=== PATIENT | female | born 1935 | race Caucasian/White ===

== ENCOUNTER 2020-12-11 17:44 | Inpatient (IN) | payer MEDICARE, OTHER ==
[2020-12-11] MEDS ORDERED: SODIUM CHLORIDE 0.9% 1,000 ML IV STA (17:53)
--- NOTE | 2020-12-11 17:58 | ED ---
General Adult HPI - General Chief complaint: Weakness Stated complaint: Weakness Time Seen by Provider: 12/11/20 17:44 Source: patient, EMS, RN notes reviewed, old records reviewed Mode of arrival: EMS Limitations: no limitations - History of Present Illness Initial comments: This is an 85-year-old female history of COPD who is oxygen dependent history of dementia who is brought in by EMS because of weakness lethargy worsening mental status. She has been exposed to someone with Covid 19 in the facility where she resides. He did have a fever. No nausea vomiting no diarrhea. - Related Data Home Medications Medication Instructions Recorded Confirmed Acetaminophen Tab [Tylenol] 500 mg PO BID PRN 01/31/15 01/31/15 Cholecalciferol [Vitamin D3 (25 2,000 unit PO DAILY 01/31/15 01/31/15 Mcg = 1000 Iu)] Cyanocobalamin [Vitamin B-12] 1,000 mcg PO DAILY 01/31/15 01/31/15 Famotidine [Pepcid] 20 mg PO DAILY 01/31/15 01/31/15 Lidocaine 5% Patch [Lidoderm 5% 1 patch TOPICAL DAILY 01/31/15 01/31/15 Patch] Loratadine [Claritin] 10 mg PO DAILY 01/31/15 01/31/15 Lovastatin [Mevacor] 20 mg PO HS 01/31/15 01/31/15 Melatonin 5 mg PO HS 01/31/15 01/31/15 Memantine [Namenda] 10 mg PO BID 01/31/15 01/31/15 Potassium Chloride [K-Tab ER] 10 meq PO DAILY 01/31/15 01/31/15 QUEtiapine [SEROquel] 100 mg PO HS 01/31/15 01/31/15 Thiamine [Vitamin B-1] 100 mg PO DAILY 01/31/15 01/31/15 Warfarin [Coumadin] 2.5 mg PO DAILY 01/31/15 01/31/15 clonazePAM [KlonoPIN] 0.5 mg PO TID PRN 01/31/15 01/31/15 guaiFENesin-DM 100-10MG/5ML 2.5 ml PO DAILY PRN 01/31/15 01/31/15 [Robitussin DM] traZODone HCL [Desyrel] 100 mg PO HS 01/31/15 01/31/15 Previous Rx's Medication Instructions Recorded Azithromycin [Zithromax] 500 mg PO HS #3 tab 02/04/15 Budesonide-Formot 160-4.5 Mcg 2 puff INHALATION RT-BID #1 puff 02/04/15 [Symbicort 160-4.5 Mcg Inhaler] Ipratropium-Albuterol Nebulize 3 ml INHALATION RT-TID #90 02/04/15 [Duoneb 0.5 mg-3 mg/3 ml Soln] ampul.neb Allergies Allergy/AdvReac Type Severity Reaction Status Date / Time Penicillins Allergy Unknown Verified 01/31/15 16:58 Review of Systems ROS Statement: Those systems with pertinent positive or pertinent negative responses have been documented in the HPI. ROS Other: All systems not noted in ROS Statement are negative. Limitations: ROS unobtainable due to patients medical condition Past Medical History Past Medical History: Dementia, Hyperlipidemia, Pulmonary Embolus (PE), Renal Disease History of Any Multi-Drug Resistant Organisms: ESBL Date of last positivie culture/infection: 09/05/18 ESBL E.coli MDRO Source:: URINE Past Surgical History: Appendectomy, Back Surgery, Joint Replacement Additional Past Surgical History / Comment(s): Both hips replaced Past Anesthesia/Blood Transfusion Reactions: No Reported Reaction Past Psychological History: Anxiety Smoking Status: Never smoker Past Alcohol Use History: Occasional Past Drug Use History: None Reported - Past Family History Brother(s) Family Medical History: Cancer Additional Family Medical History / Comment(s): 3 brothers and 2 sisters had cancer not sure where General Exam - General Exam Comments Initial Comments: This is a well-developed sec appearing female who is awake alert but pleasantly confused. Limitations: no limitations General appearance: alert, in no apparent distress Head exam: Present: atraumatic, normocephalic, normal inspection Eye exam: Present: normal appearance, PERRL, EOMI. Absent: scleral icterus, conjunctival injection, periorbital swelling ENT exam: Present: mucous membranes dry Neck exam: Present: normal inspection. Absent: tenderness, meningismus, lymphadenopathy Respiratory exam: Present: decreased breath sounds. Absent: respiratory distres s, wheezes, rales, rhonchi, stridor Cardiovascular Exam: Present: regular rate, normal rhythm, normal heart sounds. Absent: systolic murmur, diastolic murmur, rubs, gallop, clicks GI/Abdominal exam: Present: soft, normal bowel sounds. Absent: distended, tenderness, guarding, rebound, rigid Extremities exam: Present: normal inspection, full ROM, normal capillary refill. Absent: tenderness, pedal edema, joint swelling, calf tenderness Back exam: Present: normal inspection Neurological exam: Present: alert, altered, CN II-XII intact Psychiatric exam: Present: normal affect, normal mood Skin exam: Present: warm, dry, intact, normal color. Absent: rash Course Vital Signs 12/11/20 12/11/20 12/11/20 17:47 18:55 19:31 Temperature 99.9 F H 99.6 F Pulse Rate 102 H 97 89 Respiratory 20 16 24 Rate Blood Pressure 120/109 113/94 158/77 O2 Sat by Pulse 93 L 95 94 L Oximetry Medical Decision Making - Medical Decision Making I did discuss findings with Dr. Smith patient will be admitted place [facility]. Patient does have dehydration and failure to thrive - Lab Data Result diagrams: 12/11/20 17:52 12/11/20 18:40 Lab Results 12/11/20 12/11/20 12/11/20 Range/Units 17:52 17:52 18:01 WBC 11.4 H (3.8-10.6) k/uL RBC 4.96 (3.80-5.40) m/uL Hgb 14.0 (11.4-16.0) gm/dL Hct 44.5 (34.0-46.0) % MCV 89.8 (80.0-100.0) fL MCH 28.3 (25.0-35.0) pg MCHC 31.5 (31.0-37.0) g/dL RDW 13.1 (11.5-15.5) % Plt Count 262 (150-450) k/uL MPV 7.8 Neutrophils % 73 % Lymphocytes % 19 % Monocytes % 5 % Eosinophils % 1 % Basophils % 1 % Neutrophils # 8.3 H (1.3-7.7) k/uL Lymphocytes # 2.2 (1.0-4.8) k/uL Monocytes # 0.6 (0-1.0) k/uL Eosinophils # 0.1 (0-0.7) k/uL Basophils # 0.1 (0-0.2) k/uL PT (9.0-12.0) sec INR (<1.2) Sodium (137-145) mmol/L Potassium (3.5-5.1) mmol/L Chloride (98-107) mmol/L Carbon Dioxide (22-30) mmol/L Anion Gap mmol/L BUN (7-17) mg/dL Creatinine (0.52-1.04) mg/dL Est GFR (CKD-EPI)AfAm (>60 ml/min/1.73 sqM) Est GFR (CKD-EPI)NonAf (>60 ml/min/1.73 sqM) Glucose (74-99) mg/dL Plasma Lactic Acid Jaquan 1.0 (0.7-2.0) mmol/L Calcium (8.4-10.2) mg/dL Magnesium (1.6-2.3) mg/dL Total Bilirubin (0.2-1.3) mg/dL AST (14-36) U/L ALT (4-34) U/L Alkaline Phosphatase (38-126) U/L C-Reactive Protein (<10.0) mg/L Total Protein (6.3-8.2) g/dL Albumin (3.5-5.0) g/dL Urine Color Urine Appearance (Clear) Urine pH (5.0-8.0) Ur Specific [place] (1.001-1.035) Urine Protein (Negative) Urine Glucose (UA) (Negative) Urine Ketones (Negative) Urine Blood (Negative) Urine Nitrite (Negative) Urine Bilirubin (Negative) Urine Urobilinogen (<2.0) mg/dL Ur Leukocyte Esterase (Negative) Urine RBC (0-5) /hpf Urine WBC (0-5) /hpf Urine Bacteria (None) /hpf Urine Mucus (None) /hpf Coronavirus (PCR) (Not Detectd) Influenza Type A RNA Not Detected (Not Detectd) Influenza Type B (PCR) Not Detected (Not Detectd) 12/11/20 12/11/20 12/11/20 Range/Units 18:40 18:40 19:49 WBC (3.8-10.6) k/uL RBC (3.80-5.40) m/uL Hgb (11.4-16.0) gm/dL Hct (34.0-46.0) % MCV (80.0-100.0) fL MCH (25.0-35.0) pg MCHC (31.0-37.0) g/dL RDW (11.5-15.5) % Plt Count (150-450) k/uL MPV Neutrophils % % Lymphocytes % % Monocytes % % Eosinophils % % Basophils % % Neutrophils # (1.3-7.7) k/uL Lymphocytes # (1.0-4.8) k/uL Monocytes # (0-1.0) k/uL Eosinophils # (0-0.7) k/uL Basophils # (0-0.2) k/uL PT 11.3 (9.0-12.0) sec INR 1.1 (<1.2) Sodium 143 (137-145) mmol/L Potassium 4.0 (3.5-5.1) mmol/L Chloride 108 H (98-107) mmol/L Carbon Dioxide 27 (22-30) mmol/L Anion Gap 8 mmol/L BUN 22 H (7-17) mg/dL Creatinine 0.92 (0.52-1.04) mg/dL Est GFR (CKD-EPI)AfAm 65 (>60 ml/min/1.73 sqM) Est GFR (CKD-EPI)NonAf 56 (>60 ml/min/1.73 sqM) Glucose 113 H (74-99) mg/dL Plasma Lactic Acid Jaquan (0.7-2.0) mmol/L Calcium 8.7 (8.4-10.2) mg/dL Magnesium 2.0 (1.6-2.3) mg/dL Total Bilirubin 0.9 (0.2-1.3) mg/dL AST 20 (14-36) U/L ALT 10 (4-34) U/L Alkaline Phosphatase 85 (38-126) U/L C-Reactive Protein 56.9 H (<10.0) mg/L Total Protein 6.7 (6.3-8.2) g/dL Albumin 3.6 (3.5-5.0) g/dL Urine Color Yellow Urine Appearance Clear (Clear) Urine pH 6.5 (5.0-8.0) Ur Specific [place] 1.017 (1.001-1.035) Urine Protein Trace H (Negative) Urine Glucose (UA) Negative (Negative) Urine Ketones Negative (Negative) Urine Blood Trace H (Negative) Urine Nitrite Negative (Negative) Urine Bilirubin Negative (Negative) Urine Urobilinogen 3.0 (<2.0) mg/dL Ur Leukocyte Esterase Moderate H (Negative) Urine RBC 11 H (0-5) /hpf Urine WBC 45 H (0-5) /hpf Urine Bacteria Rare H (None) /hpf Urine Mucus Rare H (None) /hpf Coronavirus (PCR) (Not Detectd) Influenza Type A RNA (Not Detectd) Influenza Type B (PCR) (Not Detectd) 12/11/20 Range/Units 19:49 WBC (3.8-10.6) k/uL RBC (3.80-5.40) m/uL Hgb (11.4-16.0) gm/dL Hct (34.0-46.0) % MCV (80.0-100.0) fL MCH (25.0-35.0) pg MCHC (31.0-37.0) g/dL RDW (11.5-15.5) % Plt Count (150-450) k/uL MPV Neutrophils % % Lymphocytes % % Monocytes % % Eosinophils % % Basophils % % Neutrophils # (1.3-7.7) k/uL Lymphocytes # (1.0-4.8) k/uL Monocytes # (0-1.0) k/uL Eosinophils # (0-0.7) k/uL Basophils # (0-0.2) k/uL PT (9.0-12.0) sec INR (<1.2) Sodium (137-145) mmol/L Potassium (3.5-5.1) mmol/L Chloride (98-107) mmol/L Carbon Dioxide (22-30) mmol/L Anion Gap mmol/L BUN (7-17) mg/dL Creatinine (0.52-1.04) mg/dL Est GFR (CKD-EPI)AfAm (>60 ml/min/1.73 sqM) Est GFR (CKD-EPI)NonAf (>60 ml/min/1.73 sqM) Glucose (74-99) mg/dL Plasma Lactic Acid Jaquan (0.7-2.0) mmol/L Calcium (8.4-10.2) mg/dL Magnesium (1.6-2.3) mg/dL Total Bilirubin (0.2-1.3) mg/dL AST (14-36) U/L ALT (4-34) U/L Alkaline Phosphatase (38-126) U/L C-Reactive Protein (<10.0) mg/L Total Protein (6.3-8.2) g/dL Albumin (3.5-5.0) g/dL Urine Color Urine Appearance (Clear) Urine pH (5.0-8.0) Ur Specific [place] (1.001-1.035) Urine Protein (Negative) Urine Glucose (UA) (Negative) Urine Ketones (Negative) Urine Blood (Negative) Urine Nitrite (Negative) Urine Bilirubin (Negative) Urine Urobilinogen (<2.0) mg/dL Ur Leukocyte Esterase (Negative) Urine RBC (0-5) /hpf Urine WBC (0-5) /hpf Urine Bacteria (None) /hpf Urine Mucus (None) /hpf Coronavirus (PCR) Detected A (Not Detectd) Influenza Type A RNA (Not Detectd) Influenza Type B (PCR) (Not Detectd) - EKG Data -: EKG Interpreted by Me EKG shows normal: sinus rhythm EKG Comments: EKG shows normal sinus rhythm a 93 NC interval 206 QRS 86 QT since QTC 358/[address]-T wave changes - Radiology Data Radiology results: report reviewed (Imaging reviewed no evidence of acute infiltrates at this time), image reviewed Disposition Clinical Impression: COVID-19, Dehydration, Failure to thrive syndrome, adult, Febrile illness, acute, Altered mental status Disposition: ADMITTED IP TO THIS [facility] Condition: Fair Referrals: Eda Degroot MD [Primary Care Provider] - 1-2 days
[2020-12-11 18:57] LABS: Basophils # (A) 0.1 k/uL (0-0.2); Basophils % (A) 1 %; Eosinophils # (A) 0.1 k/uL (0-0.7); Eosinophils % (A) 1 %; HCT 44.5 % (34.0-46.0); Lymphocytes # (A) 2.2 k/uL (1.0-4.8); Lymphocytes % (A) 19 %; MCH 28.3 pg (25.0-35.0); MCHC 31.5 g/dL (31.0-37.0); MCV 89.8 fL (80.0-100.0); Mean Platelet Volume 7.8; Monocytes # (A) 0.6 k/uL (0-1.0); Monocytes % (A) 5 %; Neutrophils # (A) 8.3 k/uL (1.3-7.7); Neutrophils % (A) 73 %; Platelet Count 262 k/uL (150-450); RBC 4.96 m/uL (3.80-5.40); RDW 13.1 % (11.5-15.5); WBC 11.4 k/uL (3.8-10.6)
[2020-12-11 19:10] LABS: Albumin 3.6 g/dL (3.5-5.0); C Reactive Protein 56.9 mg/L (<10.0); Calcium 8.7 mg/dL (8.4-10.2); Total Bilirubin 0.9 mg/dL (0.2-1.3); Total Protein 6.7 g/dL (6.3-8.2)
[2020-12-11 19:21] LABS: INR 1.1 (<1.2); Prothrombin Time 11.3 sec (9.0-12.0)
--- NOTE | 2020-12-11 19:28 | XR ---
EXAMINATION TYPE: XR chest 1V portable DATE OF EXAM: 12/11/2020 COMPARISON: January 31, 2015 HISTORY: Short of breath. TECHNIQUE: Single view FINDINGS: There is no heart failure nor confluent pneumonic infiltrate. Costophrenic angles are clear . Thoracic aorta is atheromatous. There are no hilar masses. Bony thorax is intact. IMPRESSION: No active cardiopulmonary disease.
[2020-12-11 20:10] LABS: Appearance,Urine Clear (Clear); Bacteria,Urine Rare /hpf; Bilirubin,Urine Negative (Negative); Blood,Urine Trace (Negative); Color,Urine Yellow; Glucose,Urine (UA) Negative (Negative); Ketones,Urine Negative (Negative); Leukocyte Esterase,Urine Moderate (Negative); Mucus,Urine Rare /hpf; Nitrite,Urine Negative (Negative); PH, Urine 6.5 (5.0-8.0); Protein,Urine Trace (Negative); RBC,Urine 11 /hpf (0-5); Specific Gravity,Urine 1.017 (1.001-1.035); WBC,Urine 45 /hpf (0-5)
[2020-12-11] MEDS ORDERED: dexAMETHasone 2 MG TAB PO STA (20:28)
[2020-12-11] MEDS ORDERED: NALOXONE 0.4 MG/ML 1 ML VIAL IV PRN (20:32)
[2020-12-11] MEDS ORDERED: ACETAMINOPHEN TAB 325 MG TAB PO PRN (20:32)
[2020-12-11] MEDS ORDERED: clonazePAM 0.5 MG TAB PO PRN (20:33)
[2020-12-11] MEDS ORDERED: ATORVASTATIN 10 MG TAB PO SCH (21:00)
[2020-12-11] MEDS ORDERED: WARFARIN 2.5 MG TAB PO ONE (21:15)
[2020-12-12] MEDS ORDERED: ALBUTEROL HFA INHALER INHALATION SCH
[2020-12-12] MEDS: MELATONIN 5 MG TABLET PO SCH ×2 (00:10→20:11)
[2020-12-12] MEDS: MEMANTINE 10 MG TAB PO SCH ×3 (00:10→20:11)
[2020-12-12] MEDS: traZODone HCL 100 MG TAB PO SCH ×2 (00:10→20:11)
[2020-12-12] MEDS: ATORVASTATIN 10 MG TAB PO SCH ×2 (00:10→20:11)
[2020-12-12 08:36] LABS: INR 1.1 (<1.2); Prothrombin Time 11.2 sec (9.0-12.0)
[2020-12-12] MEDS ORDERED: CHOLECALCIFEROL 25 MCG (1000 IU) TABLET PO SCH (09:00)
[2020-12-12] MEDS: POTASSIUM CHLORIDE ER 10 MEQ TAB.ER.PRT PO SCH (09:14)
[2020-12-12] MEDS: CYANOCOBALAMIN 500 MCG TAB PO SCH (09:14)
[2020-12-12] MEDS: FAMOTIDINE 20 MG TAB PO SCH (09:14)
[2020-12-12] MEDS: ZINC SULFATE 220 MG CAP PO SCH (09:14)
[2020-12-12] MEDS: dexAMETHasone 2 MG TAB PO SCH (09:15)
[2020-12-12] MEDS: LORATADINE 10 MG TAB PO SCH (09:15)
[2020-12-12] MEDS: CHOLECALCIFEROL 25 MCG (1000 IU) TABLET PO SCH (09:15)
[2020-12-12] MEDS: THIAMINE 100 MG TAB PO SCH (09:15)
[2020-12-12] MEDS: ASCORBIC ACID 500 MG TAB PO SCH (09:15)
[2020-12-12] MEDS: ENOXAPARIN 40 MG/0.4 ML SYRINGE SQ SCH (09:16)
[2020-12-12] MEDS: SYMBICORT 160-4.5 MCG INHALER INHALATION SCH ×2 (09:34→20:29)
[2020-12-12] MEDS: ALBUTEROL HFA INHALER INHALATION SCH ×3 (09:34→20:28)
[2020-12-12] MEDS: LIDOCAINE 5% PATCH TOPICAL SCH (10:17)
--- NOTE | 2020-12-12 10:43 | P.HPIM ---
History of Present Illness H&P Date: 12/12/20 Jyothi Dejesus, is an 85 year old female patient of Dr Degroot who presented to [facility] emergency room with a chief complaint of generalized weakness, somnolence and worsening mental status, patient resides at an extended care facility, she was exposed to a Covid 19 patient at the facility, she was having low grade fever. patient was evaluated in the emergency roomvital examination on presentation revealed a temperature of 99.9 pulse 102 respiration 20 blood pressure 120/109 pulse ox 93% on room air. her white blood count was 11.4 hemoglobin 14.0 platelet count 262 INR 1.1 sodium 143 potassium 4.0 BUN 22 creatinine 0.92 glucose 113C-reactive protein 56.9 pro calcitonin 0.14 castillo virus PCR was positive, urine analysis revealed evidence of urinary tract infection. Chest x-ray was done in the emergency room and did not reveal any evidence of acute pulmonary disease, EKG was done in the emergency room and revealed normal findings. Patient was admitted to medical floor she was started on dexamethasone and Lovenox, pulmonary critical care consultation was requested and infectious disease consultation was requested. past medical history is significant for history of pulmonary embolism maintained on Coumadin however INR is subtherapeutic at 1.1, history of hypertension, history of hyperlipidemia, history of oxygen dependent chronic respiratory failure due to advanced COPD, history of Alzheimer disease with dementia. Past Medical History Past Medical History: COPD, Dementia, Hyperlipidemia, Pulmonary Embolus (PE), Renal Disease History of Any Multi-Drug Resistant Organisms: ESBL Date of last positivie culture/infection: 09/05/18 ESBL E.coli MDRO Source:: URINE Past Surgical History: Appendectomy, Back Surgery, Joint Replacement Additional Past Surgical History / Comment(s): Both hips replaced Past Anesthesia/Blood Transfusion Reactions: No Reported Reaction Past Psychological History: Anxiety Smoking Status: Never smoker Past Alcohol Use History: Occasional Past Drug Use History: None Reported - Past Family History Brother(s) Family Medical History: Cancer Additional Family Medical History / Comment(s): 3 brothers and 2 sisters had cancer not sure where Medications and Allergies Home Medications Medication Instructions Recorded Confirmed Type Memantine [Namenda] 10 mg PO BID@0800,1700 01/31/15 12/11/20 History QUEtiapine [SEROquel] 100 mg PO DAILY@1700 01/31/15 12/11/20 History clonazePAM [KlonoPIN] 0.5 mg PO BID@1300,2000 01/31/15 12/11/20 History Budesonide-Formot 160-4.5 Mcg 2 puff INHALATION RT-BID #1 puff 02/04/15 12/11/20 Rx [Symbicort 160-4.5 Mcg Inhaler] Acetaminophen Tab [Tylenol] 500 - 1,000 mg PO Q4-6H PRN 12/11/20 12/11/20 History Aspirin 325 mg PO DAILY@0800 12/11/20 12/11/20 History Donepezil HCl [Aricept] 10 mg PO DAILY@0800 12/11/20 12/11/20 History Furosemide [Lasix] 10 mg PO Q48H 12/11/20 12/11/20 History Haldol 5mg/Ml Solution 2.5 mg PO Q6H PRN 12/11/20 12/11/20 History Hyoscyamine Elixir [Levsin 1 - 2 ml PO Q4H PRN 12/11/20 12/11/20 History 0.125MG/ML Drops] Ipratropium-Albuterol Nebulize 3 ml IN RT-TID@09,,12/11/20 12/11/20 History [Duoneb 0.5 mg-3 mg/3 ml Soln] LORazepam ORAL CONC [Ativan 1 mg PO Q4H PRN 12/11/20 12/11/20 History Intensol] Loperamide [Imodium] 2 mg PO Q2H PRN 12/11/20 12/11/20 History Morphine Sulfate [Morphine Sulfate 25 mg PO Q3H PRN 12/11/20 12/11/20 History Oral Soln Conc (20 MG/ML)] Nystatin [Nystop] 1 applic TOPICAL BID PRN 12/11/20 12/11/20 History QUEtiapine [SEROquel] 25 mg PO DAILY@0800 12/11/20 12/11/20 History clonazePAM [KlonoPIN] 0.5 mg PO HS PRN 12/11/20 12/11/20 History guaiFENesin [Diabetic Tussin Ex] 200 mg PO DAILY PRN 12/11/20 12/11/20 History predniSONE 5 mg PO DAILY@0800 12/11/20 12/11/20 History traZODone HCL 150 mg PO HS@2000 12/11/20 12/11/20 History Allergies Allergy/AdvReac Type Severity Reaction Status Date / Time Penicillins Allergy Unknown Verified 12/11/20 21:49 Physical Exam Vitals: Vital Signs Temp Pulse Pulse Resp BP BP Pulse Ox 12/12/20 05:12 98.5 F 74 16 118/71 97 12/12/20 03:14 98.7 F 78 15 123/68 94 L 12/11/20 22:26 98.8 F 79 15 146/83 94 L 12/11/20 19:31 99.6 F 89 24 158/77 94 L 12/11/20 18:55 97 16 113/94 95 12/11/20 17:47 99.9 F H 102 H 20 120/109 93 L Intake and Output 12/11/20 12/11/20 12/12/20 14:59 22:59 06:59 Other: Voiding Method Diaper # Voids 3 Weight 72.575 kg In general patient is alert and oriented 3 in no apparent distress HEENT head normocephalic and atraumatic Neck is supple no JVD no goiter no lymphadenopathy Chest exam reveals scattered crackles bilaterally no wheezing Cardiac exam reveals regular heart sounds no gallops no murmurs Abdomen is soft nontender no organomegaly with normal bowel sounds Extremity exam reveals no edema no cyanosis or clubbing Neurological examination reveals no gross focal deficit Results CBC & Chem 7: 12/11/20 17:52 12/11/20 18:40 Labs: Abnormal Lab Results - Last 24 Hours (Table) 12/11/20 12/11/20 12/11/20 Range/Units 17:52 18:40 18:40 WBC 11.4 H (3.8-10.6) k/uL Neutrophils # 8.3 H (1.3-7.7) k/uL Chloride 108 H (98-107) mmol/L BUN 22 H (7-17) mg/dL Glucose 113 H (74-99) mg/dL C-Reactive Protein 56.9 H (<10.0) mg/L Procalcitonin 0.14 H (0.02-0.09) ng/mL Urine Protein (Negative) Urine Blood (Negative) Ur Leukocyte Esterase (Negative) Urine RBC (0-5) /hpf Urine WBC (0-5) /hpf Urine Bacteria (None) /hpf Urine Mucus (None) /hpf Coronavirus (PCR) (Not Detectd) 12/11/20 12/11/20 Range/Units 19:49 19:49 WBC (3.8-10.6) k/uL Neutrophils # (1.3-7.7) k/uL Chloride (98-107) mmol/L BUN (7-17) mg/dL Glucose (74-99) mg/dL C-Reactive Protein (<10.0) mg/L Procalcitonin (0.02-0.09) ng/mL Urine Protein Trace H (Negative) Urine Blood Trace H (Negative) Ur Leukocyte Esterase Moderate H (Negative) Urine RBC 11 H (0-5) /hpf Urine WBC 45 H (0-5) /hpf Urine Bacteria Rare H (None) /hpf Urine Mucus Rare H (None) /hpf Coronavirus (PCR) Detected A (Not Detectd) Microbiology - Last 24 Hours (Table) 12/11/20 19:49 Urine Culture - Preliminary Urine,Voided Assessment and Plan Plan: Covid 19 infection no evidence of pneumonia on chest x-ray Urinary tract infection Febrile illness Evidence of dehydration with prerenal azotemia History of pulmonary embolism maintained on Coumadin however INR is significantly subtherapeutic Underlying history of hypertension Underlying history of hyperlipidemia Underlying history of Alzheimer's disease with dementia today patient is having worsening shortness of breath, she is requiring oxygen 4 L via nasal cannula We will recheck chest x-ray Consultation for pulmonary and infectious disease were initiated Due to Coumadin being subtherapeutic will cover with Lovenox until INR is between 2 and 3
[2020-12-13] MEDS: ALBUTEROL HFA INHALER INHALATION SCH ×3 (06:05→19:30)
[2020-12-13] MEDS: SYMBICORT 160-4.5 MCG INHALER INHALATION SCH ×2 (06:05→19:31)
[2020-12-13] MEDS: dexAMETHasone 2 MG TAB PO SCH (08:28)
[2020-12-13] MEDS: THIAMINE 100 MG TAB PO SCH (08:28)
[2020-12-13] MEDS: ZINC SULFATE 220 MG CAP PO SCH (08:28)
[2020-12-13] MEDS: CYANOCOBALAMIN 500 MCG TAB PO SCH (08:28)
[2020-12-13] MEDS: POTASSIUM CHLORIDE ER 10 MEQ TAB.ER.PRT PO SCH (08:28)
[2020-12-13] MEDS: CHOLECALCIFEROL 25 MCG (1000 IU) TABLET PO SCH (08:28)
[2020-12-13] MEDS: ASCORBIC ACID 500 MG TAB PO SCH (08:28)
[2020-12-13] MEDS: MEMANTINE 10 MG TAB PO SCH ×2 (08:28→19:33)
[2020-12-13] MEDS: LORATADINE 10 MG TAB PO SCH (08:28)
[2020-12-13] MEDS: FAMOTIDINE 20 MG TAB PO SCH (08:28)
[2020-12-13] MEDS: ENOXAPARIN 40 MG/0.4 ML SYRINGE SQ SCH (08:29)
[2020-12-13] MEDS: LIDOCAINE 5% PATCH TOPICAL SCH (08:29)
[2020-12-13 08:31] LABS: ALT 14 U/L (4-34); African American GFR (CKD) 86 (>60 ml/min/1.73 sqM); Anion Gap 7 mmol/L; Blood Urea Nitrogen 28 mg/dL (7-17); C Reactive Protein 36.1 mg/L (<10.0); Calcium 8.5 mg/dL (8.4-10.2); Carbon Dioxide 27 mmol/L (22-30); Chloride 105 mmol/L (98-107); Globulin 3.4 g/dL; Glucose 85 mg/dL (74-99); Non-African American GFR(CKD) 75 (>60 ml/min/1.73 sqM); Sodium 139 mmol/L (137-145); Total Bilirubin 0.8 mg/dL (0.2-1.3)
[2020-12-13 08:35] LABS: AST 36 U/L (14-36); Albumin 3.5 g/dL (3.5-5.0); Alkaline Phosphatase 57 U/L (38-126); Potassium 4.7 mmol/L (3.5-5.1); Total Protein 6.9 g/dL (6.3-8.2)
[2020-12-13 08:36] LABS: LDH 929 U/L (313-618)
--- NOTE | 2020-12-13 09:41 | CONS ---
CONSULTATION DATE OF SERVICE: 12/12/2020 REASON FOR CONSULTATION: Positive Covid test and UTI. HISTORY OF PRESENT ILLNESS: The patient is an 85-year-old female with a past medical history significant for COPD, home O2 dependent on 2 L nasal cannula. This patient also has a history of dementia and resident of a facility where the patient resides. The patient has been sent to the ER at [facility] last evening for evaluation of mental status changes, weakness, lethargic, and apparently the patient has been exposed to somebody in the facility with Covid 19. Patient on presentation to the hospital, apparently did have a low-grade fever of 99 degrees Fahrenheit. The patient has been sating 93 to 95% on 3 L nasal cannula. The patient did have an elevated white count on admission and left shift but no evidence of any lymphopenia. Patient did have normal kidney function. Liver enzymes are normal. CRP was 26.9, procalcitonin 0.14. Urine has been positive. Influenza PCR was negative. The patient did have a chest x-ray that was negative for any acute . Infectious disease was consulted for further management. Most of the information has been obtained from reviewing the chart and talking to nursing staff as the patient herself is not a good historian and unable to provide any reliable history. REVIEW OF SYSTEMS: Positive points have been mentioned in HPI. Complete review could not be obtained. PAST MEDICAL HISTORY: Dementia, hypertension, hyperlipidemia. 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 PAST SURGICAL HISTORY: Appendectomy, back surgery and both hips replaced. SOCIAL HISTORY: No history of smoking, drinking or drug use. FAMILY HISTORY: Brother history of cancer. ALLERGIES: To PENICILLIN. No history of anaphylaxis. MEDICATIONS: The patient is currently on Tylenol, Ventolin, vitamin C, Lipitor, Symbicort, Klonopin, Dexamethasone, Lovenox, Lidoderm patch, Namenda and zinc sulfate. PHYSICAL EXAMINATION: Blood pressure 138/69, pulse 77, temperature 98. She is 95% on 3 L nasal cannula. General description is an elderly female lying in bed in no distress. No tachypnea or accessory muscles of respiration use. HEENT: Examination shows no pallor or scleral icterus. Oral mucous membranes dry. NECK trachea central. No thyromegaly. LUNGS: Unlabored breathing, decreased intensity of breath sounds. No wheeze. HEART: S1, S2. Regular rate and rhythm. ABDOMEN: Soft, no tenderness, no guarding, no rigidity. EXTREMITIES: No edema of the feet. NEUROLOGICAL: The patient is awake and alert. Orientation could not be determined. LABS: Hemoglobin 14, white count 11.4, BUN of 22, creatinine 0.92. Liver enzymes are normal. Urine has been positive. Chest x-ray with no acute infiltrate. DIAGNOSTIC IMPRESSION AND PLAN: 1. Patient admitted to the hospital with low-grade fever, mental status changes. This patient did have underlying chronic obstructive pulmonary disease on home O2 2 L currently on 3 L and currently sating 95%. Chest x-ray has been negative for any acute infiltrate. Concern for possible mild Covid-19 infection and no evidence of secondary bacterial pneumonia. 2. Patient did have positive UA and may be contributing to some of her mental status changes . PLAN: 1. We will start the patient on Rocephin 1 g daily to cover for the UTI. 2. As for the Covid-19 infection, patient to be treated with Vitamin C, Lovenox and zinc. The chest x-ray negative. We will offer steroid as well as Remdesivir . 3. Droplet isolation/respiratory support. 4. We will follow on clinical condition and further adjust medication if needed. Thank you for this consultation. Will follow this patient along with you. MMMALL / IJN: [id number] /
--- NOTE | 2020-12-13 10:59 | P.PN ---
Subjective Progress Note Date: 12/13/20 Jyothi Dejesus, is an 85 year old female patient of Dr Degroot who presented to [facility] emergency room with a chief complaint of generalized weakness, somnolence and worsening mental status, patient resides at an extended care facility, she was exposed to a Covid 19 patient at the facility, she was having low grade fever. patient was evaluated in the emergency roomvital examination on presentation revealed a temperature of 99.9 pulse 102 respiration 20 blood pressure 120/109 pulse ox 93% on room air. her white blood count was 11.4 hemoglobin 14.0 platelet count 262 INR 1.1 sodium 143 potassium 4.0 BUN 22 creatinine 0.92 glucose 113C-reactive protein 56.9 pro calcitonin 0.14 castillo virus PCR was positive, urine analysis revealed evidence of urinary tract infection. Chest x-ray was done in the emergency room and did not reveal any evidence of acute pulmonary disease, EKG was done in the emergency room and revealed normal findings. Patient was admitted to medical floor she was started on dexamethasone and Lovenox, pulmonary critical care consultation was requested and infectious disease consultation was requested. past medical history is significant for history of pulmonary embolism maintained on Coumadin however INR is subtherapeutic at 1.1, history of hypertension, h istory of hyperlipidemia, history of oxygen dependent chronic respiratory failure due to advanced COPD, history of Alzheimer disease with dementia. 12/13/2020 patient was seen and examined on the medical floor she is alert and oriented 3 in no apparent distress she is requiring oxygen 4 L via nasal cannula she is complaining of cough and shortness of breath otherwise she denies any complaints there is no fever or chills no headache or dizziness no chest pain no nausea or vomiting no abdominal pain no diarrhea no blood in the stools no burning with urination no frequency or urgency and no hematuria. Objective - Vital Signs Vital signs: Vital Signs Temp 98.1 F 12/13/20 09:52 Pulse 77 12/13/20 09:52 Resp 16 12/13/20 09:52 BP 127/75 12/13/20 09:52 Pulse Ox 97 12/13/20 09:52 Intake & Output 12/12/20 12/13/20 12/13/20 17:59 06:59 18:59 Other: Voiding Method Diaper # Voids 1 # Bowel Movements 1 - Exam In general patient is alert and oriented 3 in no apparent distress HEENT head normocephalic and atraumatic Neck is supple no JVD no goiter no lymphadenopathy Chest exam reveals scattered crackles bilaterally no wheezing Cardiac exam reveals regular heart sounds no gallops no murmurs Abdomen is soft nontender no organomegaly with normal bowel sounds Extremity exam reveals no edema no cyanosis or clubbing Neurological examination reveals no gross focal deficit - Labs CBC & Chem 7: 12/11/20 17:52 12/13/20 06:34 Labs: Abnormal Lab Results - Last 24 Hours (Table) 12/13/20 12/13/20 Range/Units 06:34 06:34 D-Dimer 0.89 H (<0.60) mg/L FEU BUN 28 H (7-17) mg/dL Lactate Dehydrogenase 929 H (313-618) U/L C-Reactive Protein 36.1 H (<10.0) mg/L Microbiology - Last 24 Hours (Table) 12/11/20 18:40 Blood Culture - Preliminary Blood No Growth after 24 hours 12/11/20 18:40 Blood Culture - Preliminary Blood No Growth after 24 hours 12/11/20 19:49 Urine Culture - Final Urine,Voided Assessment and Plan Plan: Covid 19 infection no evidence of pneumonia on chest x-ray Urinary tract infection Febrile illness Evidence of dehydration with prerenal azotemia History of pulmonary embolism maintained on Coumadin however INR is significantl y subtherapeutic Underlying history of hypertension Underlying history of hyperlipidemia Underlying history of Alzheimer's disease with dementia today patient is having worsening shortness of breath, she is requiring oxygen 4 L via nasal cannula We will recheck chest x-ray Consultation for pulmonary and infectious disease were initiated Due to Coumadin being subtherapeutic will cover with Lovenox until INR is between 2 and 3
[2020-12-13 11:33] LABS: Basophils # (A) 0.03 X 10*3/uL (0.00-0.10); Basophils % (A) 0.3 %; Eosinophils # (A) 0 X 10*3/uL (0.04-0.35); Eosinophils % (A) 0 %; HGB 13.6 g/dL (12.0-15.0); Lymphocytes # (A) 3.71 X 10*3/uL (0.90-5.00); MCH 28.4 pg (27.0-32.0); MCHC 30.9 g/dL (32.0-37.0); MCV 91.9 fL (80.0-97.0); Mean Platelet Volume 10.5 fL (9.5-12.2); Monocytes # (A) 1.33 X 10*3/uL (0.20-1.00); Monocytes % (A) 13.6 %; Neutrophils # (A) 4.65 X 10*3/uL (1.80-7.70); Neutrophils % (A) 47.7 %; Platelet Count 246 X 10*3/uL (140-440); RBC 4.79 X 10*6/uL (4.10-5.20); RDW 13.2 % (11.5-14.5); WBC 9.76 X 10*3/uL (4.50-10.00)
[2020-12-13 11:57] LABS: Ferritin 79.1 ng/mL (10.0-291.0)
[2020-12-13] MEDS ORDERED: REMDESIVIR 200 MG in SODIUM CHLORIDE 0.9% 250 ML IVPB ONE (13:00)
--- NOTE | 2020-12-13 14:16 | P.CNPUL ---
History of Present Illness Consult date: 12/13/20 Requesting physician: Yaneli Smith Reason for consult: dyspnea Chief complaint: Weakness, lethargy, altered mental status History of present illness: This is a pleasant 85-year-old female patient with a known history of dementia, hyperlipidemia, pulmonary embolism anticoagulated with warfarin, renal disease. She was brought in to the emergency room yesterday from her adult foster [facility] with altered mental status, lethargy, weakness. She had been exposed to others at the facility with CoVID 19. Here she did test positive for the castillo virus. Chest x-ray shows no acute pulmonary process. She is hypoxemic at 86% O2 saturation on room air. She's using today in cons ultation on the regular medical floor. She is currently resting comfortably in bed. Awake and alert in no acute distress. Oriented to person. White count 9.7. Hemoglobin 13.6. D-dimer 0.89. Sodium 139. Potassium 4.7. Creatinine 0.73. LDH 929. C-reactive protein 36.1. Pro-calcitonin 0.14. INR 1.1 She been initiated on dexamethasone, Lovenox, vitamin supplements. Symbicort, albuterol. Empiric antibiotics in the form of ceftriaxone. Review of Systems ROS unobtainable: due to mental status Past Medical History Past Medical History: COPD, Dementia, Hyperlipidemia, Pulmonary Embolus (PE), Renal Disease History of Any Multi-Drug Resistant Organisms: ESBL Date of last positivie culture/infection: 09/05/18 ESBL E.coli MDRO Source:: URINE Past Surgical History: Appendectomy, Back Surgery, Joint Replacement Additional Past Surgical History / Comment(s): Both hips replaced Past Anesthesia/Blood Transfusion Reactions: No Reported Reaction Past Psychological History: Anxiety Smoking Status: Never smoker Past Alcohol Use History: Occasional Past Drug Use History: None Reported - Past Family History Brother(s) Family Medical History: Cancer Additional Family Medical History / Comment(s): 3 brothers and 2 sisters had cancer not sure where Medications and Allergies Home Medications Medication Instructions Recorded Confirmed Type Memantine [Namenda] 10 mg PO BID@0800,1700 01/31/15 12/11/20 History QUEtiapine [SEROquel] 100 mg PO DAILY@1700 01/31/15 12/11/20 History clonazePAM [KlonoPIN] 0.5 mg PO BID@1300,2000 01/31/15 12/11/20 History Budesonide-Formot 160-4.5 Mcg 2 puff INHALATION RT-BID #1 puff 02/04/15 12/11/20 Rx [Symbicort 160-4.5 Mcg Inhaler] Acetaminophen Tab [Tylenol] 500 - 1,000 mg PO Q4-6H PRN 12/11/20 12/11/20 History Aspirin 325 mg PO DAILY@0800 12/11/20 12/11/20 History Donepezil HCl [Aricept] 10 mg PO DAILY@0800 12/11/20 12/11/20 History Furosemide [Lasix] 10 mg PO Q48H 12/11/20 12/11/20 History Haldol 5mg/Ml Solution 2.5 mg PO Q6H PRN 12/11/20 12/11/20 History Hyoscyamine Elixir [Levsin 1 - 2 ml PO Q4H PRN 12/11/20 12/11/20 History 0.125MG/ML Drops] Ipratropium-Albuterol Nebulize 3 ml IN RT-TID@09,13,12/11/20 12/11/20 History [Duoneb 0.5 mg-3 mg/3 ml Soln] LORazepam ORAL CONC [Ativan 1 mg PO Q4H PRN 12/11/20 12/11/20 History Intensol] Loperamide [Imodium] 2 mg PO Q2H PRN 12/11/20 12/11/20 History Morphine Sulfate [Morphine Sulfate 25 mg PO Q3H PRN 12/11/20 12/11/20 History Oral Soln Conc (20 MG/ML)] Nystatin [Nystop] 1 applic TOPICAL BID PRN 12/11/20 12/11/20 History QUEtiapine [SEROquel] 25 mg PO DAILY@0800 12/11/20 12/11/20 History clonazePAM [KlonoPIN] 0.5 mg PO HS PRN 12/11/20 12/11/20 History guaiFENesin [Diabetic Tussin Ex] 200 mg PO DAILY PRN 12/11/20 12/11/20 History predniSONE 5 mg PO DAILY@0800 12/11/20 12/11/20 History traZODone HCL 150 mg PO HS@199912/11/20 12/11/20 History Allergies Allergy/AdvReac Type Severity Reaction Status Date / Time Penicillins Allergy Unknown Verified 12/11/20 21:49 Physical Exam Vitals: Vital Signs Temp Pulse Resp BP BP Pulse Ox 12/13/20 13:54 99.3 F 97 20 151/78 94 L 12/13/20 12:21 86 L 12/13/20 09:52 98.1 F 77 16 127/75 97 12/13/20 09:14 16 12/13/20 05:42 98.5 F 50 L 17 126/73 97 12/13/20 01:59 98.3 F 77 19 152/74 93 L 12/12/20 22:01 97.4 F L 53 L 16 115/68 94 L 12/12/20 19:45 67 18 12/12/20 18:00 98.0 F 67 18 138/69 95 12/12/20 14:00 98.8 F 74 18 131/73 93 L Intake and Output 12/12/20 12/13/20 12/13/20 21:59 06:59 14:59 Intake Total 200 Balance 200 Intake: Oral 200 Other: Voiding Method Diaper # Voids 1 # Bowel Movements 1 GENERAL EXAM: Alert, pleasant 85-year-old female patient, 4 L nasal cannula, comfortable in no apparent distress. HEAD: Normocephalic. EYES: Normal reaction of pupils, equal size. NOSE: Clear with pink turbinates. THROAT: No erythema or exudates. NECK: No masses, no JVD. CHEST: No chest wall deformity. LUNGS: Equal air entry with no crackles, wheeze, rhonchi or dullness. CVS: S1 and S2 normal with no audible murmur, regular rhythm. ABDOMEN: No hepatosplenomegaly, normal bowel sounds, no guarding or rigidity. SPINE: No scoliosis or deformity SKIN: No rashes CENTRAL NERVOUS SYSTEM: No focal deficits, tone is normal in all 4 extremities. EXTREMITIES: There is no peripheral edema. No clubbing, no cyanosis. Peripheral pulses are intact. Results - Laboratory Findings CBC and BMP: 12/13/20 06:34 12/13/20 06:34 PT/INR, D-dimer PT 11.2 sec (9.0-12.0) 12/12/20 07:11 INR 1.1 (<1.2) 12/12/20 07:11 D-Dimer 0.89 mg/L FEU (<0.60) H 12/13/20 06:34 Abnormal lab findings: Abnormal Labs 12/11/20 12/11/20 12/11/20 17:52 18:40 18:40 WBC 11.4 H MCHC Neutrophils # 8.3 H Monocytes # Eosinophils # D-Dimer Chloride 108 H BUN 22 H Glucose 113 H Lactate Dehydrogenase C-Reactive Protein 56.9 H Procalcitonin 0.14 H Urine Protein Urine Blood Ur Leukocyte Esterase Urine RBC Urine WBC Urine Bacteria Urine Mucus Coronavirus (PCR) 12/11/20 12/11/20 12/13/20 19:49 19:49 06:34 WBC MCHC 30.9 L Neutrophils # Monocytes # 1.33 H Eosinophils # 0 L D-Dimer Chloride BUN Glucose Lactate Dehydrogenase C-Reactive Protein Procalcitonin Urine Protein Trace H Urine Blood Trace H Ur Leukocyte Esterase Moderate H Urine RBC 11 H Urine WBC 45 H Urine Bacteria Rare H Urine Mucus Rare H Coronavirus (PCR) Detected A 12/13/20 12/13/20 06:34 06:34 WBC MCHC Neutrophils # Monocytes # Eosinophils # D-Dimer 0.89 H Chloride BUN 28 H Glucose Lactate Dehydrogenase 929 H C-Reactive Protein 36.1 H Procalcitonin Urine Protein Urine Blood Ur Leukocyte Esterase Urine RBC Urine WBC Urine Bacteria Urine Mucus Coronavirus (PCR) - Diagnostic Findings Chest x-ray: image reviewed Assessment and Plan Assessment: 1 Acute CoVID 19 infection. 2 Elevated inflammatory markers secondary to above 3 Acute on chronic hypoxic respiratory failure secondary to above 4 History of pulmonary embolism, on warfarin, subtherapeutic, INR 1.1 5 Dementia 6 Hyperlipidemia Plan: The patient was seen and evaluated by Dr. Valdez Chest x-ray and labs reviewed Continue dexamethasone, Lovenox, vitamin supplement Add Remdesivir Titrate FiO2 as tolerated We will continue to follow and make further recommendations based on her clinical status I, the cosigning physician, performed a history & physical examination of the patient. Lungs sounds are clear. Maintaining good O2 saturations in the 90s on 4 L/m per nasal. I discussed the assessment and plan of care with my nurse practitioner, Lisa Curry. I attest to the above consultation as dictated by her. Time with Patient: Greater than 30
[2020-12-13 16:30] LABS: Glucose,Whole Blood 138 mg/dL (75-99)
--- NOTE | 2020-12-13 19:01 | PN ---
PROGRESS NOTE DATE OF SERVICE: 12/13/2020 REASON FOR FOLLOWUP VISIT: 1. Covid 19 infection. 2. UTI. INTERVAL HISTORY: The patient is currently afebrile. The patient is breathing comfortably. The patient is on supplemental oxygen. Not a good historian. No vomiting or diarrhea or other changes reported by nursing staff. PHYSICAL EXAMINATION: Blood pressure 132/82 with a pulse of 70, temperature 98.7. She is 93% on 4 L nasal cannula. General description is elderly female lying in bed in no distress. Respiratory system: Unlabored breathing with decreased intensity of breath sounds. No wheeze. HEART: S1, S2. Regular rate and rhythm. ABDOMEN: Soft, no tenderness. LABS: Hemoglobin 13.1, white count 9.76. BUN of 20, creatinine 0.73. DIAGNOSTIC IMPRESSION AND PLAN: 1. Patient admitted to the hospital with mental status changes, weakness, hypoxemia in this patient who does have COVID-19 infection. The patient is currently on zinc, dexamethasone, Lovenox, to continue and started on Remdesivir. 2. Patient with urinary tract infection, covered with Rocephin while waiting for the culture to finalize. 3. Continue supportive care. MMODL / IJN: [id number] /
[2020-12-13] MEDS: ATORVASTATIN 10 MG TAB PO SCH (19:33)
[2020-12-13] MEDS: traZODone HCL 100 MG TAB PO SCH (19:33)
[2020-12-13] MEDS: MELATONIN 5 MG TABLET PO SCH (19:33)
[2020-12-14] MEDS: SYMBICORT 160-4.5 MCG INHALER INHALATION SCH ×2 (07:15→19:37)
[2020-12-14] MEDS: ALBUTEROL HFA INHALER INHALATION SCH ×3 (07:15→19:37)
[2020-12-14] MEDS: MEMANTINE 10 MG TAB PO SCH ×2 (08:12→19:48)
[2020-12-14] MEDS: FAMOTIDINE 20 MG TAB PO SCH (08:12)
[2020-12-14] MEDS: ENOXAPARIN 40 MG/0.4 ML SYRINGE SQ SCH (08:12)
[2020-12-14] MEDS: dexAMETHasone 2 MG TAB PO SCH (08:13)
[2020-12-14] MEDS: THIAMINE 100 MG TAB PO SCH (08:13)
[2020-12-14] MEDS: ASCORBIC ACID 500 MG TAB PO SCH (08:13)
[2020-12-14] MEDS: ZINC SULFATE 220 MG CAP PO SCH (08:13)
[2020-12-14] MEDS: LORATADINE 10 MG TAB PO SCH (08:13)
[2020-12-14] MEDS: POTASSIUM CHLORIDE ER 10 MEQ TAB.ER.PRT PO SCH (08:13)
[2020-12-14] MEDS: CYANOCOBALAMIN 500 MCG TAB PO SCH (08:13)
[2020-12-14] MEDS: CHOLECALCIFEROL 25 MCG (1000 IU) TABLET PO SCH (08:13)
[2020-12-14] MEDS: LIDOCAINE 5% PATCH TOPICAL SCH (08:14)
--- NOTE | 2020-12-14 12:59 | CDI ---
Documentation Clarification Form Date: 12/14/2020 12:42:25 PM From: Jyothi GambleWOLF, CCDS Phone: Admit Date: 12/11/2020 08:36:00 PM Patient Name: Jyothi Dejesus Visit Number: [id number] Discharge Date: ATTENTION: The Clinical Documentation Specialists (CDI) and [facility] Coding Staff appreciate your assistance in clarifying documentation. Please respond to the clarification below the line at the bottom and electronically sign. The CDI & [facility] Coding staff will review the response and follow-up if needed. Please note: Queries are made part of the Legal Health Record. If you have any questions, please contact the author of this message via ITS. Dr. Yaneli Smith: Per the 12/12 ID Consult: "Patient did have positive UA and may be contributing to some of her mental status changes." Per the 12/11 ED Note the patient is confused. History/Risk Factors per the 12/12 ED Note Past Medical History and the 12/12 History & Physical Medical History: Alzheimer's disease with dementia, Hypertension, Hyperlipidemia, PE, ESBL Urine culture, Anxiety. Resides in [facility] Clinical Indicators: Presented to the ED on 12/11 via EMS from an Adult Foster Care facility with Weakness, somnolence and worsening mental status. O2 dependent, exposed to COVID-19 at the facility, Fever. ED Clinical Impression: COVID-19, Dehydration, UTI, Failure to Thrive, Acute Febrile Illness, Altered mental status. VS 12/11: T 99.9, P 102, R 20, BP 120/109, - 158/77, PO 93 RA - 95 4Lnc, BMI: 25.8 12/11 LAB: WBC 11.4, Neut 8.3, Cl 108, BUN 22, Glucose 113, CRP 56.9, Procalcitonin 0.14 12/11 UA: clear, trace protein, trace blood, Negative Nitrite, Moderate Esterase. 12/11 Serology: COVID Pos. Influenza A/B: Neg 12/11 CXR: CXR: No active cardiopulmonary disease. Treatment 12/11-12/12, IV fluid 1,000 mls @ 130, po Hexadrol, po Melatonin, po Namenda, INH Ventolin, INH Symbicort, po Vit C, po Vit D3, Lovenox sq, po Orazinc. 12/13: IV Rocephin & IV Remdesivir. In your professional opinion, can you please further clarify the patient's altered mental status: [ ] Metabolic Encephalopathy [ ] Other Encephalopathy, please specify: [ ] Due to known Alzheimer's Disease with Dementia [ ] Other, please specify [ ] Unable to determine (Last Revision: December 2017) Metabolic encephalopathy secondary to Covid 19 infection and UTI MTDD
[2020-12-14] MEDS: REMDESIVIR 100 MG in SODIUM CHLORIDE 0.9% 250 ML IVPB SCH (13:28)
--- NOTE | 2020-12-14 15:07 | P.PN ---
Subjective Progress Note Date: 12/14/20 Principal diagnosis: Weakness, lethargy, altered mental status This is a pleasant 85-year-old female patient with a known history of dementia, hyperlipidemia, pulmonary embolism anticoagulated with warfarin, renal disease. She was brought in to the emergency room yesterday from her adult foster retirement [facility] with altered mental status, lethargy, weakness. She had been exposed to others at the facility with CoVID 19. Here she did test positive for the castillo virus. Chest x-ray shows no acute pulmonary process. She is hypoxemic at 86% O2 saturation on room air. She's using today in consultation on the regular medical floor. She is currently resting comfortably in bed. Awake and alert in no acute distress. Oriented to person. White count 9.7. Hemoglobin 13.6. D-dimer 0.89. Sodium 139. Potassium 4.7. Creatinine 0.73. LDH 929. C-reactive protein 36.1. Pro-calcitonin 0.14. INR 1.1 She been initiated on dexamethasone, Lovenox, vitamin supplements. Symbicort, albuterol. Empiric antibiotics in the form of ceftriaxone. 12/14/2020 patient seen in follow-up on medical floor, she sits up in a chair, appears to be comfortable, no respiratory distress, she remains pleasantly confused, last night she had a new onset A. fib with RVR, currently the rate is controlled. Patient remains on Lovenox at prophylactic doses, she is oral dexamethasone, she is on Remdesivir, day 2. She is on multivitamins, she is on Rocephin . ID service is following, but urine cultures show no growth, today's labs have been reviewed, showing no leukocytosis, white blood cell count is 9.7, d-dimer is 0.89, electrolytes are within normal limits, BUN is 28, pro- calcitonin level was negative at 0.14. LDH was 929, and CRP is trending down. Urinalysis suggests possibility of infection, so far culture is negative, Objective - Vital Signs Vital signs: Vital Signs Temp 97.6 F 12/14/20 13:30 Pulse 100 12/14/20 13:30 Resp 19 12/14/20 13:30 BP 147/91 12/14/20 13:30 Pulse Ox 91 L 12/14/20 13:30 Intake & Output 12/13/20 12/14/20 12/14/20 18:59 06:59 18:59 Intake Total 200 Output Total 1225 500 Balance 200 -1225 -500 Intake: Oral 200 Output: Urine 1225 500 Other: Voiding Method Diaper Diaper # Voids 2 # Bowel Movements 1 - Exam GENERAL EXAM: Alert, chest, 85-year-old white female, 4 L of oxygen, with a pulse ox of 91-92% comfortable in no apparent distress. HEAD: Normocephalic/atraumatic. EYES: Normal reaction of pupils, equal size. Conjunctiva pink, sclera white. NOSE: Clear with pink turbinates. THROAT: No erythema or exudates. NECK: No masses, no JVD, no thyroid enlargement, no adenopathy. CHEST: No chest wall deformity. Symmetrical expansion. LUNGS: Equal air entry with no crackles, wheeze, rhonchi or dullness. CVS: Regular rate and rhythm, normal S1 and S2, no gallops, no murmurs, no rubs ABDOMEN: Soft, nontender. No hepatosplenomegaly, normal bowel sounds, no guarding or rigidity. EXTREMITIES: No clubbing, no edema, no cyanosis, 2+ pulses and upper and lower extremities. MUSCULOSKELETAL: Muscle strength and tone normal. SPINE: No scoliosis or deformity SKIN: No rashes CENTRAL NERVOUS SYSTEM: Alert and oriented -3. No focal deficits, tone is no rmal in all 4 extremities. PSYCHIATRIC: Alert and oriented -3. Appropriate affect. Intact judgment and insight. - Labs CBC & Chem 7: 12/13/20 06:34 12/13/20 06:34 Labs: Abnormal Lab Results - Last 24 Hours (Table) 12/13/20 Range/Units 16:28 POC Glucose (mg/dL) 138 H (75-99) mg/dL Microbiology - Last 24 Hours (Table) 12/11/20 18:40 Blood Culture - Preliminary Blood No Growth after 48 hours 12/11/20 18:40 Blood Culture - Preliminary Blood No Growth after 48 hours Assessment and Plan Plan: Assessment: #1. Acute COVID 19 infection without evidence of pneumonia on the chest x-ray #2. Acute hypoxic respiratory failure, related to possibility of sepsis related to urinary tract infection and quit 19 infection #3. New onset A. fib with RVR #4. History of dementia #5. Hyperlipidemia #6. Previous history of pulmonary embolism on warfarin which is currently on hold #7. Chronic kidney disease #8. Previous history of ESBL E. coli urinary tract infection #9. Never smoker #10. Osteoarthritis Plan: Continue Decadron, patient is on day 2 of Remdesivir, no worsening dyspnea, wean FiO2, urine cultures have shown no growth, patient remains on antibiotics, she's had no fever or chills, her admission chest x-ray showed no evidence of pneumonia on the chest x-ray, we will obtain follow-up markers, d-dimer and follow-up chest x-ray tomorrow, we'll continue to follow I performed a history & physical examination of the patient and discussed their management with my nurse practitioner, Kary Alcantar. I reviewed the nurse practitioner's note and agree with the documented findings and plan of care. Lung sounds are positive for diminished breath sounds. The findings and the impression was discussed with the patient. I attest to the documentation by the nurse practitioner. Time with Patient: Less than 30
[2020-12-14] MEDS: METOPROLOL TARTRATE 25 MG TAB PO SCH ×2 (16:16→19:47)
--- NOTE | 2020-12-14 17:18 | P.PN ---
Subjective Progress Note Date: 12/14/20 Jyothi Dejesus, is an 85 year old female patient of Dr Degroot who presented to [facility] emergency room with a chief complaint of generalized weakness, somnolence and worsening mental status, patient resides at an extended care facility, she was exposed to a Covid 19 patient at the facility, she was having low grade fever. patient was evaluated in the emergency roomvital examination on presentation revealed a temperature of 99.9 pulse 102 respiration 20 blood pressure 120/109 pulse ox 93% on room air. her white blood count was 11.4 hemoglobin 14.0 platelet count 262 INR 1.1 sodium 143 potassium 4.0 BUN 22 creatinine 0.92 glucose 113C-reactive protein 56.9 pro calcitonin 0.14 castillo virus PCR was positive, urine analysis revealed evidence of urinary tract infection. Chest x-ray was done in the emergency room and did not reveal any evidence of acute pulmonary disease, EKG was done in the emergency room and revealed normal findings. Patient was admitted to medical floor she was started on dexamethasone and Lovenox, pulmonary critical care consultation was requested and infectious disease consultation was requested. past medical history is significant for history of pulmonary embolism maintained on Coumadin however INR is subtherapeutic at 1.1, history of hypertension, h istory of hyperlipidemia, history of oxygen dependent chronic respiratory failure due to advanced COPD, history of Alzheimer disease with dementia. 12/13/2020 patient was seen and examined on the medical floor she is alert and oriented 3 in no apparent distress she is requiring oxygen 4 L via nasal cannula she is complaining of cough and shortness of breath otherwise she denies any complaints there is no fever or chills no headache or dizziness no chest pain no nausea or vomiting no abdominal pain no diarrhea no blood in the stools no burning with urination no frequency or urgency and no hematuria. On 12/14/2020 patient was seen and examined on the medical floor she is alert responsive in no apparent distress she is receiving Remdesevir, today is dose #2, she is also receiving dexamethasone and Lovenox, there is no fever or chills no headache or dizziness no chest pain no shortness of breath no cough no nausea or vomiting no abdominal pain no diarrhea and no urinary symptoms Objective - Vital Signs Vital signs: Vital Signs Temp 98.6 F 12/14/20 05:33 Pulse 80 12/14/20 05:33 Resp 18 12/14/20 05:33 BP 145/83 12/14/20 05:33 Pulse Ox 95 12/14/20 05:33 Intake & Output 12/13/20 12/14/20 12/14/20 18:59 06:59 18:59 Intake Total 200 Output Total 1225 Balance 200 -1225 Intake: Oral 200 Output: Urine 1225 Other: Voiding Method Diaper Diaper # Voids 2 # Bowel Movements 1 - Exam In general patient is alert and oriented 3 in no apparent distress HEENT head normocephalic and atraumatic Neck is supple no JVD no goiter no lymphadenopathy Chest exam reveals scattered crackles bilaterally no wheezing Cardiac exam reveals regular heart sounds no gallops no murmurs Abdomen is soft nontender no organomegaly with normal bowel sounds Extremity exam reveals no edema no cyanosis or clubbing Neurological examination reveals no gross focal deficit - Labs CBC & Chem 7: 12/13/20 06:34 12/13/20 06:34 Labs: Abnormal Lab Results - Last 24 Hours (Table) 12/13/20 12/13/20 Range/Units 06:34 16:28 MCHC 30.9 L (32.0-37.0) g/dL Monocytes # 1.33 H (0.20-1.00) X 10*3/uL Eosinophils # 0 L (0.04-0.35) X 10*3/uL POC Glucose (mg/dL) 138 H (75-99) mg/dL Microbiology - Last 24 Hours (Table) 12/11/20 18:40 Blood Culture - Preliminary Blood No Growth after 48 hours 12/11/20 18:40 Blood Culture - Preliminary Blood No Growth after 48 hours Assessment and Plan Plan: Covid 19 infection no evidence of pneumonia on chest x-ray Urinary tract infection Febrile illness Evidence of dehydration with prerenal azotemia History of pulmonary embolism maintained on Coumadin however INR is significantly subtherapeutic Underlying history of hypertension Underlying history of hyperlipidemia Underlying history of Alzheimer's disease with dementia today patient is having worsening shortness of breath, she is requiring oxygen 4 L via nasal cannula We will recheck chest x-ray Consultation for pulmonary and infectious disease were initiated Due to Coumadin being subtherapeutic will cover with Lovenox until INR is between 2 and 3
[2020-12-14] MEDS: MELATONIN 5 MG TABLET PO SCH (19:48)
[2020-12-14] MEDS: traZODone HCL 100 MG TAB PO SCH (19:48)
[2020-12-14] MEDS: ATORVASTATIN 10 MG TAB PO SCH (19:48)
--- NOTE | 2020-12-15 03:33 | PN ---
PROGRESS NOTE DATE OF SERVICE: 12/14/2020 REASON FOR FOLLOWUP: 1. COVID-19 infection. 2. Possible UTI. INTERVAL HISTORY: The patient is currently afebrile. The patient has been breathing comfortably. Remains to be pleasantly confused. Unable to provide any history. No vomiting, diarrhea and any other changes reported by nursing staff. PHYSICAL EXAMINATION: Blood pressure 158/92 with a pulse of 109, temperature 97.9. She is 92% on 4 L nasal cannula. General description is an elderly female lying in bed in no distress. Respiratory system: Unlabored breathing, decreased breath sounds at the bases. No wheeze. Heart S1, S2. Regular rate and rhythm. ABDOMEN: Soft, no tenderness. LABS: Hemoglobin is 13.5, white count 9.76. BUN of 28, creatinine 0.73. Urine came back negative. DIAGNOSTIC IMPRESSION AND PLAN: 1. Patient with acute COVID-19 infection for which the patient is currently on Remdesivir, Lovenox and zinc and ascorbic acid to continue along with respiratory support. 2. Possible positive urine culture with concern for urinary tract infection covered with Rocephin. Culture negative. 3. Continue supportive care. MMODL / IJN: [id number] /
[2020-12-15] MEDS: CHOLECALCIFEROL 25 MCG (1000 IU) TABLET PO SCH (08:20)
[2020-12-15] MEDS: dexAMETHasone 2 MG TAB PO SCH (08:21)
[2020-12-15] MEDS: ASCORBIC ACID 500 MG TAB PO SCH (08:21)
[2020-12-15] MEDS: POTASSIUM CHLORIDE ER 10 MEQ TAB.ER.PRT PO SCH (08:21)
[2020-12-15] MEDS: ENOXAPARIN 40 MG/0.4 ML SYRINGE SQ SCH (08:21)
[2020-12-15] MEDS: LORATADINE 10 MG TAB PO SCH (08:21)
[2020-12-15] MEDS: METOPROLOL TARTRATE 25 MG TAB PO SCH (08:21)
[2020-12-15] MEDS: MEMANTINE 10 MG TAB PO SCH ×3 (08:21→21:11)
[2020-12-15] MEDS: FAMOTIDINE 20 MG TAB PO SCH (08:21)
[2020-12-15] MEDS: CYANOCOBALAMIN 500 MCG TAB PO SCH (08:21)
[2020-12-15] MEDS: ZINC SULFATE 220 MG CAP PO SCH (08:23)
[2020-12-15] MEDS: THIAMINE 100 MG TAB PO SCH (08:23)
[2020-12-15] MEDS: LIDOCAINE 5% PATCH TOPICAL SCH (08:24)
[2020-12-15] MEDS: ALBUTEROL HFA INHALER INHALATION SCH ×3 (09:07→21:13)
[2020-12-15] MEDS: SYMBICORT 160-4.5 MCG INHALER INHALATION SCH ×2 (09:07→21:13)
[2020-12-15 10:54] LABS: Basophils # (A) 0.03 X 10*3/uL (0.00-0.10); Basophils % (A) 0.4 %; Eosinophils # (A) 0.19 X 10*3/uL (0.04-0.35); Eosinophils % (A) 2.3 %; HCT 52.7 % (37.2-46.3); HGB 16.5 g/dL (12.0-15.0); Lymphocytes # (A) 2.48 X 10*3/uL (0.90-5.00); Lymphocytes % (A) 30.6 %; MCH 28.1 pg (27.0-32.0); MCHC 31.3 g/dL (32.0-37.0); MCV 89.8 fL (80.0-97.0); Mean Platelet Volume 11.1 fL (9.5-12.2); Monocytes # (A) 0.98 X 10*3/uL (0.20-1.00); Monocytes % (A) 12.1 %; Neutrophils # (A) 4.38 X 10*3/uL (1.80-7.70); Neutrophils % (A) 54.1 %; Platelet Count 253 X 10*3/uL (140-440); RBC 5.87 X 10*6/uL (4.10-5.20); RDW 13.3 % (11.5-14.5)
[2020-12-15 11:27] LABS: African American GFR (CKD) 66.6 (60.0-200.0); Albumin 4.1 g/dL (3.80-4.90); Albumin/Globulin Ratio 1.58 (1.60-3.17); Anion Gap 17.6 mmol/L (4.00-12.00); BUN/Creat Ratio 36.67 Ratio (12.00-20.00); C Reactive Protein 2.5 mg/dL (0.0-0.8); Calcium 8.9 mg/dL (8.7-10.3); Carbon Dioxide 17.4 mmol/L (21.6-31.8); Globulin 2.6 g/dL (1.6-3.3); Non-African American GFR(CKD) 57.5 (60.0-200.0); Potassium 5.5 mmol/L (3.5-5.5); Total Bilirubin 0.3 mg/dL (0.3-1.2); Total Protein 6.7 g/dL (6.2-8.2)
[2020-12-15] MEDS: REMDESIVIR 100 MG in SODIUM CHLORIDE 0.9% 250 ML IVPB SCH (12:30)
--- NOTE | 2020-12-15 12:55 | P.CRDCN ---
History of Present Illness History of present illness: This is a pleasant 85-year-old female past medical history significant for COPD, Dementia, pulmonary embolism (was previously treated with coumadin). She does not follow with a buffing wheel former automatic. We have been asked to see in consultation for new onset atrial fibrillation. Patient's RN from yesterday, was called that the patient was tachycardic HR 150-160s and the rhythm looked like Atrial fib rillation. EKG was completed, difficult to interpret all leads due to artifact and patient appears to be in sinus rhythm with PACs HR 99. Cardiology was notified that patient continued to be tachycardic HR 160-170s, and lopressor 25mg BID was started. Patient was admitted to the hospital with COVID-19 infection. She lives in a nursing facility, was having worsening fatigue and alerted mental status. On presentation to emergency department, patient's temperature 99.9, HR 102, BP 120/109, 93% on room air. Patient was admitted to a medical floor. Patient is seen and examined at bedside. No acute distress. Resting in bed with eyes closed. Unable to get full history and review of symptoms with patient. Laboratory data reviewed, WBC 8.10, Hgb 16.5, Plt 253, D-dimer 1.15, sodium 139, BUN 33, sCr 0.9, Covid-19 positive. Vital signs BP 92/52, HR 50s, afebrile, SpO2 95% on 4L nasal cannula. Current home cardiac medications include lasix 10mg [id number]. She is not currently taking Coumadin per her family. Most recent Echo 01/2015- EF 60-65%, trace to mild MR, mild TR, mild pulmonary hypertension Telemetry tracings indicate had some episodes of irregular rhythm that do appear to be atrial fibrillation, HR 140s yesterday. Today appears to be in sinus bradycardia and sinus rhythm with occasional PACs. Chest xray No acute cardiopulmonary disease REVIEW OF SYSTEMS At the time of my exam: CONSTITUTIONAL: Denies fever or chills. CARDIOVASCULAR: Denies chest pain, shortness of breath, orthopnea, PND or palpitations. RESPIRATORY: Denies cough. GASTROINTESTINAL: Denies abdominal pain, diarrhea, constipation, nausea or vomiting. MUSCULOSKELETAL: Denies myalgias. NEUROLOGIC: Denies numbness, tingling, headacbe or weakness. ENDOCRINE: Denies fatigue, weight change, polydipsia or polyurina. GENITOURINARY: Denies burning, hematuria or urgency with micturation. HEMATOLOGIC: Denies history of anemia or bleeding. PHYSICAL EXAMINATION CONSTITUTIONAL: No apparent distress. HEENT: Head is normocephalic. Pupils are equal, round. Sclerae anicteric. Mucous membranes of the mouth are moist. No JVD. No carotid bruit. CHEST EXAMINATION: Bibasilar crackles No chest wall tenderness is noted on palpation or with deep breathing. HEART EXAMINATION: Regular rate and rhythm. S1, S2 heard. No murmurs, gallops or rub. ABDOMEN: Soft, nontender. Positive bowel sounds. EXTREMITIES: 2+ peripheral pulses, no lower extremity edema and no calf tenderness. NEUROLOGIC EXAMINATION: Patient is awake, alert and oriented x3. ASSESSMENT -Paroxysmal atrial fibrillation -Dementia -History of pulmonary embolism -COPD PLAN -Spoke with patient's Son, Ed who is the patient's POA, and patient's daughter in-law. They stated that the patient was recently on hospice and they have declined starting anticoagulation for the patient. Risks and benefits were discussed with the family. They verbalized that they're aware of the risk of thromboembolism, however, do not wish to start this treatment for the patient. -Will decrease patient's metoprolol tartrate to 12.5mg BID Nurse Practitioner note has been reviewed, I agree with a documented findings and plan of care. Patient was seen and examined. Past Medical History Past Medical History: COPD, Dementia, Hyperlipidemia, Pulmonary Embolus (PE), Renal Disease History of Any Multi-Drug Resistant Organisms: ESBL Date of last positivie culture/infection: 09/05/18 ESBL E.coli MDRO Source:: URINE Past Surgical History: Appendectomy, Back Surgery, Joint Replacement Additional Past Surgical History / Comment(s): Both hips replaced Past Anesthesia/Blood Transfusion Reactions: No Reported Reaction Past Psychological History: Anxiety Smoking Status: Never smoker Past Alcohol Use History: Occasional Past Drug Use History: None Reported - Past Family History Brother(s) Family Medical History: Cancer Additional Family Medical History / Comment(s): 3 brothers and 2 sisters had cancer not sure where Medications and Allergies Home Medications Medication Instructions Recorded Confirmed Type Memantine [Namenda] 10 mg PO BID@0800,1700 01/31/15 12/11/20 History QUEtiapine [SEROquel] 100 mg PO DAILY@1700 01/31/15 12/11/20 History clonazePAM [KlonoPIN] 0.5 mg PO BID@1300,2000 01/31/15 12/11/20 History Budesonide-Formot 160-4.5 Mcg 2 puff INHALATION RT-BID #1 puff 02/04/15 12/11/20 Rx [Symbicort 160-4.5 Mcg Inhaler] Acetaminophen Tab [Tylenol] 500 - 1,000 mg PO Q4-6H PRN 12/11/20 12/11/20 History Aspirin 325 mg PO DAILY@0800 12/11/20 12/11/20 History Donepezil HCl [Aricept] 10 mg PO DAILY@0800 12/11/20 12/11/20 History Furosemide [Lasix] 10 mg PO Q48H 12/11/20 12/11/20 History Haldol 5mg/Ml Solution 2.5 mg PO Q6H PRN 12/11/20 12/11/20 History Hyoscyamine Elixir [Levsin 1 - 2 ml PO Q4H PRN 12/11/20 12/11/20 History 0.125MG/ML Drops] Ipratropium-Albuterol Nebulize 3 ml IN RT-TID@,,12/11/20 12/11/20 History [Duoneb 0.5 mg-3 mg/3 ml Soln] LORazepam ORAL CONC [Ativan 1 mg PO Q4H PRN 12/11/20 12/11/20 History Intensol] Loperamide [Imodium] 2 mg PO Q2H PRN 12/11/20 12/11/20 History Morphine Sulfate [Morphine Sulfate 25 mg PO Q3H PRN 12/11/20 12/11/20 History Oral Soln Conc (20 MG/ML)] Nystatin [Nystop] 1 applic TOPICAL BID PRN 12/11/20 12/11/20 History QUEtiapine [SEROquel] 25 mg PO DAILY@0800 12/11/20 12/11/20 History clonazePAM [KlonoPIN] 0.5 mg PO HS PRN 12/11/20 12/11/20 History guaiFENesin [Diabetic Tussin Ex] 200 mg PO DAILY PRN 12/11/20 12/11/20 History predniSONE 5 mg PO DAILY@0800 12/11/20 12/11/20 History traZODone HCL 150 mg PO HS@199912/11/20 12/11/20 History Allergies Allergy/AdvReac Type Severity Reaction Status Date / Time Penicillins Allergy Unknown Verified 12/11/20 21:49 Physical Exam Vitals: Vital Signs Temp Pulse Resp BP BP Pulse Ox 12/14/20 17:11 97.9 F 109 H 18 158/92 92 L 12/14/20 15:52 144/85 12/14/20 13:30 97.6 F 100 19 147/91 91 L 12/14/20 10:00 97.9 F 104 H 20 147/82 92 L 12/14/20 05:33 98.6 F 80 18 145/83 95 12/14/20 02:42 98.8 F 58 L 18 165/79 95 12/13/20 23:14 98.6 F 87 16 138/80 93 L 12/13/20 19:53 70 18 Intake and Output 12/14/20 12/14/20 12/14/20 06:59 14:59 22:59 Output Total 1225 500 Balance -1225 -500 Output: Urine 1225 500 Results 12/15/20 05:37 12/15/20 05:37 Current Medications Generic Name Dose Route Start Last Admin Trade Name Freq PRN Reason Stop Dose Admin Acetaminophen 650 mg 12/11/20 20:32 Acetaminophen Tab 325 Mg Tab PO Q6HR PRN Mild Pain or Fever > 100.5 Albuterol Sulfate 2 puff 12/12/20 08:00 12/14/20 12:03 Albuterol Hfa Inhaler INHALATION 2 puff RT-TID PAU Administration Ascorbic Acid 1,000 mg 12/12/20 09:00 12/14/20 08:13 Ascorbic Acid 500 Mg Tab PO 1,000 mg DAILY PAU Administration Atorvastatin Calcium 10 mg 12/11/20 21:00 12/13/20 19:33 Atorvastatin 10 Mg Tab PO 10 mg HS PAU Administration Budesonide/Formoterol Fumarate 2 puff 12/12/20 08:00 12/14/20 07:15 Symbicort 160-4.5 Mcg Inhaler INHALATION 2 puff RT-BID PAU Administration Cholecalciferol 100 mcg 12/12/20 09:00 12/14/20 08:13 Cholecalciferol 25 Mcg (1000 Iu) Tablet PO 100 mcg DAILY PAU Administration Clonazepam 0.5 mg 12/11/20 20:33 Clonazepam 0.5 Mg Tab PO TID PRN Insomnia Cyanocobalamin 1,000 mcg 12/12/20 09:00 12/14/20 08:13 Cyanocobalamin 500 Mcg Tab PO 1,000 mcg DAILY PAU Administration Dexamethasone 6 mg 12/12/20 09:00 12/14/20 08:13 Dexamethasone 2 Mg Tab PO 6 mg DAILY PAU Administration Enoxaparin Sodium 40 mg 12/12/20 09:00 12/14/20 08:12 Enoxaparin 40 Mg/0.4 Ml Syringe SQ 40 mg DAILY PAU Administration Famotidine 20 mg 12/12/20 09:00 12/14/20 08:12 Famotidine 20 Mg Tab PO 20 mg DAILY PUA Administration Ceftriaxone Sodium 1 gm/ 50 mls @ 100 mls/hr 12/13/20 09:00 12/14/20 08:12 Sodium Chloride IVPB 100 mls/hr Q24HR PAU Administration Remdesivir 100 mg/ Sodium 250 mls @ 250 mls/hr 12/14/20 13:00 12/14/20 13:28 Chloride IVPB 12/17/20 13:59 250 mls/hr Q24H PAU Administration Lidocaine 1 patch 12/12/20 09:00 12/14/20 08:14 Lidocaine 5% Patch TOPICAL 1 patch DAILY PAU Administration Loratadine 10 mg 12/12/20 09:00 12/14/20 08:13 Loratadine 10 Mg Tab PO 10 mg DAILY PAU Administration Melatonin 5 mg 12/11/20 21:00 12/13/20 19:33 Melatonin 5 Mg Tablet PO 5 mg HS PAU Administration Memantine 10 mg 12/11/20 21:00 12/14/20 08:12 Memantine 10 Mg Tab PO 10 mg BID PAU Administration Metoprolol Tartrate 25 mg 12/14/20 16:10 12/14/20 16:16 Metoprolol Tartrate 25 Mg Tab PO 25 mg BID PAU Administration Naloxone HCl 0.2 mg 12/11/20 20:32 Naloxone 0.4 Mg/Ml 1 Ml Vial IV Q2M PRN Opioid Reversal Potassium Chloride 10 meq 12/12/20 09:00 12/14/20 08:13 Potassium Chloride Er 10 Meq Tab.Er.Prt PO 10 meq DAILY PAU Administration Thiamine HCl 100 mg 12/12/20 09:00 12/14/20 08:13 Thiamine 100 Mg Tab PO 100 mg DAILY PAU Administration Trazodone HCl 100 mg 12/11/20 21:00 12/13/20 19:33 Trazodone Hcl 100 Mg Tab PO 100 mg HS PAU Administration Zinc Sulfate 220 mg 12/12/20 09:00 12/14/20 08:13 Zinc Sulfate 220 Mg Cap PO 220 mg DAILY PAU Administration Intake and Output 12/14/20 12/14/20 12/14/20 06:59 14:59 22:59 Output Total 1225 500 Balance -1225 -500 Output: Urine 1225 500 12/13/20 06:34 12/13/20 06:34
--- NOTE | 2020-12-15 13:04 | XR ---
EXAMINATION TYPE: XR chest 1V portable DATE OF EXAM: 12/15/2020 COMPARISON: 12/11/2020 INDICATION: Cold with infection TECHNIQUE: Single frontal view of the chest is obtained. FINDINGS: The heart size is normal. The pulmonary vasculature is normal. The lungs are clear. IMPRESSION: 1. No acute pulmonary process.
--- NOTE | 2020-12-15 14:00 | P.PN ---
Subjective Progress Note Date: 12/15/20 Principal diagnosis: Weakness, lethargy, altered mental status This is a pleasant 85-year-old female patient with a known history of dementia, hyperlipidemia, pulmonary embolism anticoagulated with warfarin, renal disease. She was brought in to the emergency room yesterday from her adult foster senior living [facility] with altered mental status, lethargy, weakness. She had been exposed to others at the facility with CoVID 19. Here she did test positive for the castillo virus. Chest x-ray shows no acute pulmonary process. She is hypoxemic at 86% O2 saturation on room air. She's using today in consultation on the regular medical floor. She is currently resting comfortably in bed. Awake and alert in no acute distress. Oriented to person. White count 9.7. Hemoglobin 13.6. D-dimer 0.89. Sodium 139. Potassium 4.7. Creatinine 0.73. LDH 929. C-reactive protein 36.1. Pro-calcitonin 0.14. INR 1.1 She been initiated on dexamethasone, Lovenox, vitamin supplements. Symbicort, albuterol. Empiric antibiotics in the form of ceftriaxone. 12/14/2020 patient seen in follow-up on medical floor, she sits up in a chair, appears to be comfortable, no respiratory distress, she remains pleasantly confused, last night she had a new onset A. fib with RVR, currently the rate is controlled. Patient remains on Lovenox at prophylactic doses, she is oral dexamethasone, she is on Remdesivir, day 2. She is on multivitamins, she is on Rocephin . ID service is following, but urine cultures show no growth, today's labs have been reviewed, showing no leukocytosis, white blood cell count is 9.7, d-dimer is 0.89, electrolytes are within normal limits, BUN is 28, pro- calcitonin level was negative at 0.14. LDH was 929, and CRP is trending down. Urinalysis suggests possibility of infection, so far culture is negative, On 12/15/2020 patient seen in follow-up on medical floor, she is resting comfortably in bed, still 4 L of oxygen, her pulse ox is 95%, no fever, does have some exertional dyspnea, but no acute distress. No chest discomfort. She remains on Rocephin for urinary tract infection, urine culture has been negative, blood cultures have been negative, patient is on day 3 of Remdesivir, and she remains on oral dexamethasone. Follow-up chest x-ray shows no acute pulmonary process Objective - Vital Signs Vital signs: Vital Signs Temp 97.6 F 12/15/20 10:00 Pulse 34 L 12/15/20 10:00 Resp 16 12/15/20 10:00 BP 92/52 12/15/20 10:00 Pulse Ox 95 12/15/20 10:00 Intake & Output 12/14/20 12/15/20 12/15/20 18:59 06:59 18:59 Output Total 500 Balance -500 Output: Urine 500 Other: Voiding Method Diaper # Voids 2 1 # Bowel Movements 2 1 - Exam GENERAL EXAM: Alert, chest, 85-year-old white female, 4 L of oxygen, with a pulse ox of 95% comfortable in no apparent distress. HEAD: Normocephalic/atraumatic. EYES: Normal reaction of pupils, equal size. Conjunctiva pink, sclera white. NOSE: Clear with pink turbinates. THROAT: No erythema or exudates. NECK: No masses, no JVD, no thyroid enlargement, no adenopathy. CHEST: No chest wall deformity. Symmetrical expansion. LUNGS: Equal air entry with no crackles, wheeze, rhonchi or dullness. CVS: Regular rate and rhythm, normal S1 and S2, no gallops, no murmurs, no rubs ABDOMEN: Soft, nontender. No hepatosplenomegaly, normal bowel sounds, no guarding or rigidity. EXTREMITIES: No clubbing, no edema, no cyanosis, 2+ pulses and upper and lower extremities. MUSCULOSKELETAL: Muscle strength and tone normal. SPINE: No scoliosis or deformity SKIN: No rashes CENTRAL NERVOUS SYSTEM: Alert and oriented -3. No focal deficits, tone is normal in all 4 extremities. PSYCHIATRIC: Alert and oriented -3. Appropriate affect. Intact judgment and insight. - Labs CBC & Chem 7: 12/15/20 05:37 12/15/20 05:37 Labs: Abnormal Lab Results - Last 24 Hours (Table) 12/13/20 12/15/20 12/15/20 Range/Units 09:10 05:37 05:37 RBC 5.87 H (4.10-5.20) X 10*6/uL Hgb 16.5 H (12.0-15.0) g/dL Hct 52.7 H (37.2-46.3) % MCHC 31.3 L (32.0-37.0) g/dL D-Dimer (<0.60) mg/L FEU Carbon Dioxide 17.4 L (21.6-31.8) mmol/L Anion Gap 17.60 H (4.00-12.00) mmol/L BUN 33.0 H (9.0-27.0) mg/dL Est GFR (CKD-EPI)NonAf 57.5 L (60.0-200.0) BUN/Creatinine Ratio 36.67 H (12.00-20.00) Ratio AST 69 H (13-35) U/L Lactate Dehydrogenase 793 H (120-246) U/L C-Reactive Protein 2.5 H (0.0-0.8) mg/dL Albumin/Globulin Ratio 1.58 L (1.60-3.17) g/dL Coronavirus (PCR) Detected A (Not Detected) 12/15/20 Range/Units 05:37 RBC (4.10-5.20) X 10*6/uL Hgb (12.0-15.0) g/dL Hct (37.2-46.3) % MCHC (32.0-37.0) g/dL D-Dimer 1.15 H (<0.60) mg/L FEU Carbon Dioxide (21.6-31.8) mmol/L Anion Gap (4.00-12.00) mmol/L BUN (9.0-27.0) mg/dL Est GFR (CKD-EPI)NonAf (60.0-200.0) BUN/Creatinine Ratio (12.00-20.00) Ratio AST (13-35) U/L Lactate Dehydrogenase (120-246) U/L C-Reactive Protein (0.0-0.8) mg/dL Albumin/Globulin Ratio (1.60-3.17) g/dL Coronavirus (PCR) (Not Detected) Microbiology - Last 24 Hours (Table) 12/11/20 18:40 Blood Culture - Preliminary Blood No Growth after 72 hours 12/11/20 18:40 Blood Culture - Preliminary Blood No Growth after 72 hours Assessment and Plan Plan: Assessment: #1. Acute COVID 19 infection without evidence of pneumonia on the chest x-ray #2. Acute hypoxic respiratory failure, related to possibility of sepsis related to urinary tract infection and quit 19 infection #3. New onset A. fib with RVR #4. History of dementia #5. Hyperlipidemia #6. Previous history of pulmonary embolism on warfarin which is currently on hold #7. Chronic kidney disease #8. Previous history of ESBL E. coli urinary tract infection #9. Never smoker #10. Osteoarthritis Plan: Continue current medical treatment, continue weaning FiO2, inflammatory markers are improving, chest x-ray remains negative showing no evidence of pneumonia, patient is on day 3 of Remdesivir, continue current Decadron, today's d-dimer has been noted, continue prophylactic dose Lovenox I performed a history & physical examination of the patient and discussed their management with my nurse practitioner, Kary Alcantar. I reviewed the nurse practitioner's note and agree with the documented findings and plan of care. Lung sounds are positive for diminished breath sounds. The findings and the impression was discussed with the patient. I attest to the documentation by the nurse practitioner. Time with Patient: Less than 30
--- NOTE | 2020-12-15 16:35 | P.PN ---
Subjective Progress Note Date: 12/15/20 Jyothi Dejesus, is an 85 year old female patient of Dr Degroot who presented to [facility] emergency room with a chief complaint of generalized weakness, somnolence and worsening mental status, patient resides at an extended care facility, she was exposed to a Covid 19 patient at the facility, she was having low grade fever. patient was evaluated in the emergency roomvital examination on presentation revealed a temperature of 99.9 pulse 102 respiration 20 blood pressure 120/109 pulse ox 93% on room air. her white blood count was 11.4 hemoglobin 14.0 platelet count 262 INR 1.1 sodium 143 potassium 4.0 BUN 22 creatinine 0.92 glucose 113C-reactive protein 56.9 pro calcitonin 0.14 castillo virus PCR was positive, urine analysis revealed evidence of urinary tract infection. Chest x-ray was done in the emergency room and did not reveal any evidence of acute pulmonary disease, EKG was done in the emergency room and revealed normal findings. Patient was admitted to medical floor she was started on dexamethasone and Lovenox, pulmonary critical care consultation was requested and infectious disease consultation was requested. past medical history is significant for history of pulmonary embolism maintained on Coumadin however INR is subtherapeutic at 1.1, history of hypertension, h istory of hyperlipidemia, history of oxygen dependent chronic respiratory failure due to advanced COPD, history of Alzheimer disease with dementia. 12/13/2020 patient was seen and examined on the medical floor she is alert and oriented 3 in no apparent distress she is requiring oxygen 4 L via nasal cannula she is complaining of cough and shortness of breath otherwise she denies any complaints there is no fever or chills no headache or dizziness no chest pain no nausea or vomiting no abdominal pain no diarrhea no blood in the stools no burning with urination no frequency or urgency and no hematuria. On 12/14/2020 patient was seen and examined on the medical floor she is alert responsive in no apparent distress she is receiving Remdesevir, today is dose #2, she is also receiving dexamethasone and Lovenox, there is no fever or chills no headache or dizziness no chest pain no shortness of breath no cough no nausea or vomiting no abdominal pain no diarrhea and no urinary symptoms. On 12/15/2020 showed was seen and examined on the medical floor alert responsive in no distress she has occasional cough otherwise she denies any complaints she is maintained on oxygen 4 L via nasal cannula there is no fever or chills no headache or dizziness no chest pain, no palpitation no nausea or vomiting no abdominal pain no diarrhea no blood in the stools no burning with urination no frequency or urgency and no hematuria Objective - Vital Signs Vital signs: Vital Signs Temp 97.6 F 12/15/20 10:00 Pulse 34 L 12/15/20 10:00 Resp 16 12/15/20 10:00 BP 92/52 12/15/20 10:00 Pulse Ox 95 12/15/20 10:00 Intake & Output 12/14/20 12/15/20 12/15/20 18:59 06:59 18:59 Output Total 500 Balance -500 Output: Urine 500 Other: Voiding Method Diaper # Voids 2 1 # Bowel Movements 2 1 - Exam In general patient is alert and oriented 3 in no apparent distress HEENT head normocephalic and atraumatic Neck is supple no JVD no goiter no lymphadenopathy Chest exam reveals scattered crackles bilaterally no wheezing Cardiac exam reveals regular heart sounds no gallops no murmurs Abdomen is soft nontender no organomegaly with normal bowel sounds Extremity exam reveals no edema no cyanosis or clubbing Neurological examination reveals no gross focal deficit - Labs CBC & Chem 7: 12/15/20 05:37 12/15/20 05:37 Labs: Abnormal Lab Results - Last 24 Hours (Table) 12/13/20 12/15/20 12/15/20 Range/Units 09:10 05:37 05:37 RBC 5.87 H (4.10-5.20) X 10*6/uL Hgb 16.5 H (12.0-15.0) g/dL Hct 52.7 H (37.2-46.3) % MCHC 31.3 L (32.0-37.0) g/dL D-Dimer (<0.60) mg/L FEU Carbon Dioxide 17.4 L (21.6-31.8) mmol/L Anion Gap 17.60 H (4.00-12.00) mmol/L BUN 33.0 H (9.0-27.0) mg/dL Est GFR (CKD-EPI)NonAf 57.5 L (60.0-200.0) BUN/Creatinine Ratio 36.67 H (12.00-20.00) Ratio AST 69 H (13-35) U/L Lactate Dehydrogenase 793 H (120-246) U/L C-Reactive Protein 2.5 H (0.0-0.8) mg/dL Albumin/Globulin Ratio 1.58 L (1.60-3.17) g/dL Coronavirus (PCR) Detected A (Not Detected) 12/15/20 Range/Units 05:37 RBC (4.10-5.20) X 10*6/uL Hgb (12.0-15.0) g/dL Hct (37.2-46.3) % MCHC (32.0-37.0) g/dL D-Dimer 1.15 H (<0.60) mg/L FEU Carbon Dioxide (21.6-31.8) mmol/L Anion Gap (4.00-12.00) mmol/L BUN (9.0-27.0) mg/dL Est GFR (CKD-EPI)NonAf (60.0-200.0) BUN/Creatinine Ratio (12.00-20.00) Ratio AST (13-35) U/L Lactate Dehydrogenase (120-246) U/L C-Reactive Protein (0.0-0.8) mg/dL Albumin/Globulin Ratio (1.60-3.17) g/dL Coronavirus (PCR) (Not Detected) Microbiology - Last 24 Hours (Table) 12/11/20 18:40 Blood Culture - Preliminary Blood No Growth after 72 hours 12/11/20 18:40 Blood Culture - Preliminary Blood No Growth after 72 hours Assessment and Plan Plan: Covid 19 infection no evidence of pneumonia on chest x-ray Urinary tract infection Febrile illness Evidence of dehydration with prerenal azotemia History of pulmonary embolism maintained on Coumadin however INR is significantly subtherapeutic Underlying history of hypertension Underlying history of hyperlipidemia Underlying history of Alzheimer's disease with dementia today patient is having worsening shortness of breath, she is requiring oxygen 4 L via nasal cannula We will recheck chest x-ray Consultation for pulmonary and infectious disease were initiated It is not clear whether patient was taking Coumadin prior to admission her INR was 1.1 on presentation She had a remote history of pulmonary embolism, we will contact her primary care physician prior to discharge to assess whether patient was on Coumadin recently
[2020-12-15] MEDS: MELATONIN 5 MG TABLET PO SCH ×2 (21:04→21:11)
[2020-12-15] MEDS: traZODone HCL 100 MG TAB PO SCH ×2 (21:05→21:11)
[2020-12-15] MEDS: ATORVASTATIN 10 MG TAB PO SCH ×2 (21:05→21:11)
[2020-12-15] MEDS: METOPROLOL TARTRATE 12.5 MG TAB PO SCH (21:05)
--- NOTE | 2020-12-16 01:15 | PN ---
PROGRESS NOTE DATE OF SERVICE: 12/15/2020 REASON FOR FOLLOWUP: Covid 19 infection and possible UTI. INTERVAL HISTORY: The patient is currently afebrile. The patient is hemodynamically stable. The patient is breathing comfortably on nasal cannula oxygen. No vomiting or diarrhea has been reported by the nursing staff. PHYSICAL EXAMINATION: Blood pressure 100/54 with a pulse of 87. Temperature is 97.9. She is 95% on 4 L nasal cannula. General description is an elderly female lying in bed in no distress. Respiratory system: Unlabored breathing, decreased intensity of breath sounds. No wheeze. Heart S1, S2. Regular rate and rhythm. ABDOMEN: Soft, no tenderness. LABS: Hemoglobin 16.5, white count 8.1. BUN of 33, creatinine 0.9. Blood and urine have been negative so far. DIAGNOSTIC IMPRESSION AND PLAN: 1. Patient admitted to the hospital with fever, shortness of breath, multifactorial in this patient who did have COVID-19 infection for which the patient is currently on Remdesivir, along with Dexamethasone, zinc, ascorbic acid to continue. 2. Positive UA with concern for urinary tract infection on Rocephin with culture negative. 3. Antibiotic can be safely discontinued. 4. Continue supportive care. MMODL / IJN: [id number] /
[2020-12-16] MEDS: ZINC SULFATE 220 MG CAP PO SCH (09:12)
[2020-12-16] MEDS: POTASSIUM CHLORIDE ER 10 MEQ TAB.ER.PRT PO SCH (09:12)
[2020-12-16] MEDS: MEMANTINE 10 MG TAB PO SCH ×2 (09:12→20:17)
[2020-12-16] MEDS: THIAMINE 100 MG TAB PO SCH (09:12)
[2020-12-16] MEDS: METOPROLOL TARTRATE 12.5 MG TAB PO SCH ×2 (09:12→20:17)
[2020-12-16] MEDS: LORATADINE 10 MG TAB PO SCH (09:12)
[2020-12-16] MEDS: LIDOCAINE 5% PATCH TOPICAL SCH (09:13)
[2020-12-16] MEDS: FAMOTIDINE 20 MG TAB PO SCH (09:13)
[2020-12-16] MEDS: dexAMETHasone 2 MG TAB PO SCH (09:13)
[2020-12-16] MEDS: ASCORBIC ACID 500 MG TAB PO SCH (09:13)
[2020-12-16] MEDS: ENOXAPARIN 40 MG/0.4 ML SYRINGE SQ SCH (09:13)
[2020-12-16] MEDS: CHOLECALCIFEROL 25 MCG (1000 IU) TABLET PO SCH (09:13)
[2020-12-16] MEDS: CYANOCOBALAMIN 500 MCG TAB PO SCH (09:13)
[2020-12-16] MEDS: ALBUTEROL HFA INHALER INHALATION SCH ×3 (09:57→21:53)
[2020-12-16] MEDS: SYMBICORT 160-4.5 MCG INHALER INHALATION SCH ×2 (09:57→21:53)
[2020-12-16] MEDS: REMDESIVIR 100 MG in SODIUM CHLORIDE 0.9% 250 ML IVPB SCH (12:56)
--- NOTE | 2020-12-16 14:11 | P.PN ---
Subjective Progress Note Date: 12/16/20 Principal diagnosis: Weakness, lethargy, altered mental status This is a pleasant 85-year-old female patient with a known history of dementia, hyperlipidemia, pulmonary embolism anticoagulated with warfarin, renal disease. She was brought in to the emergency room yesterday from her adult foster retirement [facility] with altered mental status, lethargy, weakness. She had been exposed to others at the facility with CoVID 19. Here she did test positive for the castillo virus. Chest x-ray shows no acute pulmonary process. She is hypoxemic at 86% O2 saturation on room air. She's using today in consultation on the regular medical floor. She is currently resting comfortably in bed. Awake and alert in no acute distress. Oriented to person. White count 9.7. Hemoglobin 13.6. D-dimer 0.89. Sodium 139. Potassium 4.7. Creatinine 0.73. LDH 929. C-reactive protein 36.1. Pro-calcitonin 0.14. INR 1.1 She been initiated on dexamethasone, Lovenox, vitamin supplements. Symbicort, albuterol. Empiric antibiotics in the form of ceftriaxone. 12/14/2020 patient seen in follow-up on medical floor, she sits up in a chair, appears to be comfortable, no respiratory distress, she remains pleasantly confused, last night she had a new onset A. fib with RVR, currently the rate is controlled. Patient remains on Lovenox at prophylactic doses, she is oral dexamethasone, she is on Remdesivir, day 2. She is on multivitamins, she is on Rocephin . ID service is following, but urine cultures show no growth, today's labs have been reviewed, showing no leukocytosis, white blood cell count is 9.7, d-dimer is 0.89, electrolytes are within normal limits, BUN is 28, pro- calcitonin level was negative at 0.14. LDH was 929, and CRP is trending down. Urinalysis suggests possibility of infection, so far culture is negative, On 12/15/2020 patient seen in follow-up on medical floor, she is resting comfortably in bed, still 4 L of oxygen, her pulse ox is 95%, no fever, does have some exertional dyspnea, but no acute distress. No chest discomfort. She remains on Rocephin for urinary tract infection, urine culture has been negative, blood cultures have been negative, patient is on day 3 of Remdesivir, and she remains on oral dexamethasone. Follow-up chest x-ray shows no acute pulmonary process On 12/16/2020 patient seen in follow-up on medical floor. Disease D4 of Remdesivir treatment, patient is resting comfortably in bed, she is on room air, she does have underlying history of dementia, she is breathing comfortably, appears to be in no acute distress, she frequently removes her oxygen, on 3 L her pulse ox is 94-96%, she's had no fever or chills, no acute events overnight. Chest x-ray showed no acute pulmonary process. No acute events overnight, she remains on Rocephin for possibility of UTI, urine culture has been negative, blood cultures negative. Continues to d-dimer is 1.15. Patient continues on oral Decadron, and prophylactic Lovenox. Objective - Vital Signs Vital signs: Vital Signs Temp 97.8 F 12/16/20 10:00 Pulse 56 L 12/16/20 10:00 Resp 21 12/16/20 10:00 BP 145/75 12/16/20 10:00 Pulse Ox 94 L 12/16/20 10:00 Intake & Output 12/15/20 12/16/20 12/16/20 18:59 06:59 18:59 Intake Total 540 50 Balance 540 50 Intake: Oral 540 50 Other: Voiding Method Diaper # Voids 2 2 # Bowel Movements 2 - Exam GENERAL EXAM: Alert, chest, 85-year-old white female, 3 L of oxygen, with a pulse ox of 95% comfortable in no apparent distress. HEAD: Normocephalic/atraumatic. EYES: Normal reaction of pupils, equal size. Conjunctiva pink, sclera white. NOSE: Clear with pink turbinates. THROAT: No erythema or exudates. NECK: No masses, no JVD, no thyroid enlargement, no adenopathy. CHEST: No chest wall deformity. Symmetrical expansion. LUNGS: Equal air entry with no crackles, wheeze, rhonchi or dullness. CVS: Regular rate and rhythm, normal S1 and S2, no gallops, no murmurs, no rubs ABDOMEN: Soft, nontender. No hepatosplenomegaly, normal bowel sounds, no guarding or rigidity. EXTREMITIES: No clubbing, no edema, no cyanosis, 2+ pulses and upper and lower extremities. MUSCULOSKELETAL: Muscle strength and tone normal. SPINE: No scoliosis or deformity SKIN: No rashes CENTRAL NERVOUS SYSTEM: Alert and oriented -3. No focal deficits, tone is normal in all 4 extremities. PSYCHIATRIC: Alert and oriented -3. Appropriate affect. Intact judgment and insight. - Labs CBC & Chem 7: 12/15/20 05:37 12/15/20 05:37 Labs: Microbiology - Last 24 Hours (Table) 12/11/20 18:40 Blood Culture - Preliminary Blood No Growth after 96 hours 12/11/20 18:40 Blood Culture - Preliminary Blood No Growth after 96 hours Assessment and Plan Plan: Assessment: #1. Acute COVID 19 infection without evidence of pneumonia on the chest x-ray #2. Acute hypoxic respiratory failure, related to possibility of sepsis related to urinary tract infection and quit 19 infection #3. New onset A. fib with RVR #4. History of dementia #5. Hyperlipidemia #6. Previous history of pulmonary embolism on warfarin which is currently on hold #7. Chronic kidney disease #8. Previous history of ESBL E. coli urinary tract infection #9. Never smoker #10. Osteoarthritis Plan: Continue Remdesivir treatment, from pulmonary perspective she's been stable, maintaining stable to saturations, no fever or chills, yesterday chest x-ray still showed no evidence of pneumonia on the chest x-ray, she stable for transfer to [facility] from pulmonary perspective 24 hours when she finishes her Remdesivir treatment. I performed a history & physical examination of the patient and discussed their management with my nurse practitioner, Kary Alcantar. I reviewed the nurse practitioner's note and agree with the documented findings and plan of care. Lung sounds are positive for diminished breath sounds. The findings and the impression was discussed with the patient. I attest to the documentation by the nurse practitioner. Time with Patient: Less than 30
--- NOTE | 2020-12-16 15:10 | P.PN ---
Subjective his is a pleasant 85-year-old female past medical history significant for COPD, Dementia, pulmonary embolism (was previously treated with coumadin). She does not follow with a community midwife. We have been asked to see in consultation for new onset atrial fibrillation. Patient's RN from yesterday, was called that the patient was tachycardic HR 150-160s and the rhythm looked like Atrial fibrillation. EKG was completed, difficult to interpret all leads due to artifact and patient appears to be in sinus rhythm with PACs HR 99. Cardiology was notified that patient continued to be tachycardic HR 160-170s, and lopressor 25mg BID was started. Patient was admitted to the hospital with COVID-19 infection. She lives in a nursing facility, was having worsening fatigue and alerted mental status. On presentation to emergency department, patient's tempe rature 99.9, HR 102, BP 120/109, 93% on room air. Patient was admitted to a medical floor. Current home cardiac medications include lasix 10mg [id number]. She is not currently taking Coumadin per her family. Most recent Echo 01/2015- EF 60-65%, trace to mild MR, mild TR, mild pulmonary hypertension Telemetry tracings indicate had some episodes of irregular rhythm that do appear to be atrial fibrillation, HR 140s yesterday. Today appears to be in sinus bradycardia and sinus rhythm with occasional PACs. Chest xray No acute cardiopulmonary disease 12/16/20: Patient is seen and examined at bedside. No acute distress. Unable to get full history and review of symptoms with patient. Vital signs BP 139/70, HR 64, afebrile, SpO2 93% on 3L nasal cannula. PHYSICAL EXAMINATION CONSTITUTIONAL: No apparent distress. HEENT: Head is normocephalic. Pupils are equal, round. Sclerae anicteric. Mucous membranes of the mouth are moist. No JVD. No carotid bruit. CHEST EXAMINATION: Bibasilar crackles No chest wall tenderness is noted on palpation or with deep breathing. HEART EXAMINATION: Regular rate and rhythm. S1, S2 heard. No murmurs, gallops or rub. ABDOMEN: Soft, nontender. Positive bowel sounds. EXTREMITIES: 2+ peripheral pulses, no lower extremity edema and no calf tenderness. NEUROLOGIC EXAMINATION: Patient is awake, alert and oriented x3. ASSESSMENT -Paroxysmal atrial fibrillation -Dementia -History of pulmonary embolism -COPD PLAN -Spoke with patient's Son, Ed who is the patient's POA, and patient's daughter in-law. They stated that the patient was recently on hospice and they have declined starting anticoagulation for the patient. Risks and benefits were discussed with the family. They verbalized that they're aware of the risk of thromboembolism, however, do not wish to start this treatment for the patient. -Continue metoprolol 12.5mg BID. -We will sign off at this time. Please reach out with any questions or concerns. Nurse Practitioner note has been reviewed, I agree with a documented findings and plan of care. Patient was seen and examined. Objective - Vital Signs Vital signs: Vital Signs Temp 97.8 F 12/16/20 14:00 Pulse 64 12/16/20 14:00 Resp 20 12/16/20 14:00 BP 139/70 12/16/20 14:00 Pulse Ox 93 L 12/16/20 14:00 Intake & Output 12/15/20 12/16/20 12/16/20 18:59 06:59 18:59 Intake Total 540 50 300 Balance 540 50 300 Intake: IV 300 Remdesivir 100 mg In 250 Sodium Chloride 0.9% 250 ml @ 250 mls/hr IVPB Q24H [facility] Rx#:[id number] cefTRIAXone 1 gm In 50 Sodium Chloride 0.9% 50 ml @ 100 mls/hr IVPB Q24HR [facility] Rx#:[id number] Oral 540 50 Other: Voiding Method Diaper External Catheter # Voids 2 2 # Bowel Movements 2 - Labs CBC & Chem 7: 12/15/20 05:37 12/15/20 05:37 Labs: Microbiology - Last 24 Hours (Table) 12/11/20 18:40 Blood Culture - Preliminary Blood No Growth after 96 hours 12/11/20 18:40 Blood Culture - Preliminary Blood No Growth after 96 hours
--- NOTE | 2020-12-16 15:11 | P.PN ---
Subjective Progress Note Date: 12/16/20 Jyothi Dejesus, is an 85 year old female patient of Dr Degroot who presented to [facility] emergency room with a chief complaint of generalized weakness, somnolence and worsening mental status, patient resides at an extended care facility, she was exposed to a Covid 19 patient at the facility, she was having low grade fever. patient was evaluated in the emergency roomvital examination on presentation revealed a temperature of 99.9 pulse 102 respiration 20 blood pressure 120/109 pulse ox 93% on room air. her white blood count was 11.4 hemoglobin 14.0 platelet count 262 INR 1.1 sodium 143 potassium 4.0 BUN 22 creatinine 0.92 glucose 113C-reactive protein 56.9 pro calcitonin 0.14 castillo virus PCR was positive, urine analysis revealed evidence of urinary tract infection. Chest x-ray was done in the emergency room and did not reveal any evidence of acute pulmonary disease, EKG was done in the emergency room and revealed normal findings. Patient was admitted to medical floor she was started on dexamethasone and Lovenox, pulmonary critical care consultation was requested and infectious disease consultation was requested. past medical history is significant for history of pulmonary embolism maintained on Coumadin however INR is subtherapeutic at 1.1, history of hypertension, h istory of hyperlipidemia, history of oxygen dependent chronic respiratory failure due to advanced COPD, history of Alzheimer disease with dementia. 12/13/2020 patient was seen and examined on the medical floor she is alert and oriented 3 in no apparent distress she is requiring oxygen 4 L via nasal cannula she is complaining of cough and shortness of breath otherwise she denies any complaints there is no fever or chills no headache or dizziness no chest pain no nausea or vomiting no abdominal pain no diarrhea no blood in the stools no burning with urination no frequency or urgency and no hematuria. On 12/14/2020 patient was seen and examined on the medical floor she is alert responsive in no apparent distress she is receiving Remdesevir, today is dose #2, she is also receiving dexamethasone and Lovenox, there is no fever or chills no headache or dizziness no chest pain no shortness of breath no cough no nausea or vomiting no abdominal pain no diarrhea and no urinary symptoms. On 12/15/2020 showed was seen and examined on the medical floor alert responsive in no distress she has occasional cough otherwise she denies any complaints she is maintained on oxygen 4 L via nasal cannula there is no fever or chills no headache or dizziness no chest pain, no palpitation no nausea or vomiting no abdominal pain no diarrhea no blood in the stools no burning with urination no frequency or urgency and no hematuria On 12/16/2020 patient was seen and examined on the medical floor she is alert, slightly confused in no distress, she is still complaining of cough and shortness of breath otherwise she denies any complaints there is no fever or chills no headache or dizziness no chest pain no nausea or vomiting no abdominal pain no diarrhea no blood in the stools no burning with urination no frequency or urgency and no hematoma she is maintained on oxygen 3 L via nasal cannula with a pulse ox of 94% her white blood count is 8.1 hemoglobin 16.5 platelet count 253 Objective - Vital Signs Vital signs: Vital Signs Temp 97.6 F 12/16/20 06:00 Pulse 52 L 12/16/20 06:00 Resp 18 12/15/20 18:00 BP 151/74 12/16/20 06:00 Pulse Ox 96 12/16/20 09:58 Intake & Output 12/15/20 12/16/20 12/16/20 18:59 06:59 18:59 Intake Total 540 50 Balance 540 50 Intake: Oral 540 50 Other: Voiding Method Diaper # Voids 2 2 # Bowel Movements 2 - Exam In general patient is alert and oriented 3 in no apparent distress HEENT head normocephalic and atraumatic Neck is supple no JVD no goiter no lymphadenopathy Chest exam reveals scattered crackles bilaterally no wheezing Cardiac exam reveals regular heart sounds no gallops no murmurs Abdomen is soft nontender no organomegaly with normal bowel sounds Extremity exam reveals no edema no cyanosis or clubbing Neurological examination reveals no gross focal deficit - Labs CBC & Chem 7: 12/15/20 05:37 12/15/20 05:37 Labs: Abnormal Lab Results - Last 24 Hours (Table) 12/15/20 12/15/20 Range/Units 05:37 05:37 RBC 5.87 H (4.10-5.20) X 10*6/uL Hgb 16.5 H (12.0-15.0) g/dL Hct 52.7 H (37.2-46.3) % MCHC 31.3 L (32.0-37.0) g/dL Carbon Dioxide 17.4 L (21.6-31.8) mmol/L Anion Gap 17.60 H (4.00-12.00) mmol/L BUN 33.0 H (9.0-27.0) mg/dL Est GFR (CKD-EPI)NonAf 57.5 L (60.0-200.0) BUN/Creatinine Ratio 36.67 H (12.00-20.00) Ratio AST 69 H (13-35) U/L Lactate Dehydrogenase 793 H (120-246) U/L C-Reactive Protein 2.5 H (0.0-0.8) mg/dL Albumin/Globulin Ratio 1.58 L (1.60-3.17) g/dL Microbiology - Last 24 Hours (Table) 12/11/20 18:40 Blood Culture - Preliminary Blood No Growth after 96 hours 12/11/20 18:40 Blood Culture - Preliminary Blood No Growth after 96 hours Assessment and Plan Plan: Covid 19 infection no evidence of pneumonia on chest x-ray Urinary tract infection Febrile illness Evidence of dehydration with prerenal azotemia History of pulmonary embolism maintained on Coumadin however INR is significantly subtherapeutic Underlying history of hypertension Underlying history of hyperlipidemia Underlying history of Alzheimer's disease with dementia today patient is having worsening shortness of breath, she is requiring oxygen 4 L via nasal cannula We will recheck chest x-ray Consultation for pulmonary and infectious disease were initiated It is not clear whether patient was taking Coumadin prior to admission her INR was 1.1 on presentation She had a remote history of pulmonary embolism, we will contact her primary care physician prior to discharge to assess whether patient was on Coumadin recently
[2020-12-16 15:48] VITALS: BMI 25.8
--- NOTE | 2020-12-16 18:04 | PN ---
PROGRESS NOTE DATE OF SERVICE: 12/16/2020 REASON FOR FOLLOWUP: COVID-19 infection. INTERVAL HISTORY: The patient is currently afebrile. The patient seems to be breathing more comfortably. She is slightly more awake and alert. Denies having any chest pain or cough. No abdominal pain and no diarrhea. PHYSICAL EXAMINATION: Blood pressure 139/70 with a pulse of 64, temperature 97.8. She is 93% on 3 L nasal cannula. General description is an elderly female lying in bed in no distress. RESPIRATORY SYSTEM: Unlabored breathing. Clear to auscultation anteriorly. HEART: S1, S2. Regular rate and rhythm. ABDOMEN: Soft. No tenderness. LABS: Hemoglobin 16.5, white count 8.10, creatinine 0.9. DIAGNOSTIC IMPRESSION AND PLAN: 1. Patient with acute COVID-19 infection in this patient who seems to have shown some clinical improvement. The patient is on remdesivir, dexamethasone, Lovenox; to continue along with respiratory support. 2. Patient with a positive urinalysis with concern for possible urinary tract infection with culture negative. Antibiotic can be safely discontinued. MMODL / IJN: [id number] /
[2020-12-16] MEDS: ATORVASTATIN 10 MG TAB PO SCH (20:17)
[2020-12-16] MEDS: MELATONIN 5 MG TABLET PO SCH (20:17)
[2020-12-16] MEDS: traZODone HCL 100 MG TAB PO SCH (20:17)
[2020-12-17] MEDS: ALBUTEROL HFA INHALER INHALATION SCH ×2 (08:44→12:11)
[2020-12-17] MEDS: SYMBICORT 160-4.5 MCG INHALER INHALATION SCH (08:44)
[2020-12-17] MEDS: THIAMINE 100 MG TAB PO SCH (09:06)
[2020-12-17] MEDS: ASCORBIC ACID 500 MG TAB PO SCH (09:06)
[2020-12-17] MEDS: ZINC SULFATE 220 MG CAP PO SCH (09:06)
[2020-12-17] MEDS: ENOXAPARIN 40 MG/0.4 ML SYRINGE SQ SCH (09:06)
[2020-12-17] MEDS: FAMOTIDINE 20 MG TAB PO SCH (09:06)
[2020-12-17] MEDS: POTASSIUM CHLORIDE ER 10 MEQ TAB.ER.PRT PO SCH (09:06)
[2020-12-17] MEDS: METOPROLOL TARTRATE 12.5 MG TAB PO SCH (09:06)
[2020-12-17] MEDS: CHOLECALCIFEROL 25 MCG (1000 IU) TABLET PO SCH (09:09)
[2020-12-17] MEDS: dexAMETHasone 2 MG TAB PO SCH (09:10)
[2020-12-17] MEDS: MEMANTINE 10 MG TAB PO SCH (09:10)
[2020-12-17] MEDS: LIDOCAINE 5% PATCH TOPICAL SCH (09:10)
[2020-12-17] MEDS: LORATADINE 10 MG TAB PO SCH (09:10)
[2020-12-17] MEDS: CYANOCOBALAMIN 500 MCG TAB PO SCH (09:10)
[2020-12-17 10:07] VITALS: RESP 20
[2020-12-17 11:19] LABS: Basophils # (A) 0.01 X 10*3/uL (0.00-0.10); Basophils % (A) 0.1 %; Eosinophils # (A) 0 X 10*3/uL (0.04-0.35); Eosinophils % (A) 0 %; HCT 54.1 % (37.2-46.3); Lymphocytes # (A) 3.99 X 10*3/uL (0.90-5.00); Lymphocytes % (A) 47.4 %; MCH 27.7 pg (27.0-32.0); MCHC 29.6 g/dL (32.0-37.0); MCV 93.8 fL (80.0-97.0); Mean Platelet Volume 11.1 fL (9.5-12.2); Monocytes # (A) 0.79 X 10*3/uL (0.20-1.00); Monocytes % (A) 9.4 %; Neutrophils # (A) 3.61 X 10*3/uL (1.80-7.70); Neutrophils % (A) 42.9 %; Platelet Count 277 X 10*3/uL (140-440); RBC 5.77 X 10*6/uL (4.10-5.20); RDW 13.6 % (11.5-14.5); WBC 8.42 X 10*3/uL (4.50-10.00)
[2020-12-17 12:16] LABS: African American GFR (CKD) 66.6 (60.0-200.0); Albumin 3.9 g/dL (3.80-4.90); Albumin/Globulin Ratio 1.5 (1.60-3.17); Anion Gap 9.7 mmol/L (4.00-12.00); BUN/Creat Ratio 52.22 Ratio (12.00-20.00); Calcium 9.2 mg/dL (8.7-10.3); Carbon Dioxide 27.3 mmol/L (21.6-31.8); Globulin 2.6 g/dL (1.6-3.3); Non-African American GFR(CKD) 57.5 (60.0-200.0); Potassium 4.7 mmol/L (3.5-5.5); Total Bilirubin 0.3 mg/dL (0.2-1.2); Total Protein 6.5 g/dL (6.2-8.2)
[2020-12-17] MEDS: REMDESIVIR 100 MG in SODIUM CHLORIDE 0.9% 250 ML IVPB SCH (12:37)
[2020-12-17 13:59] VITALS: BP 129/58; PULSE 61; TEMP 98.3
--- NOTE | 2020-12-17 14:46 | P.DS ---
Providers Date of admission: 12/11/20 20:36 Expected date of discharge: 12/17/20 Attending physician: Yaneli Smith Consults: 12/12/20 07:15 Consult Physician Routine Consulting Provider: Jesus Kulkarni Consult Reason/Comments: UTI, COVID 19 Do you want consulting provider notified?: Yes 12/13/20 10:59 Consult Physician Routine Consulting Provider: Refugio Valdez Consult Reason/Comments: Covid-19 Do you want consulting provider notified?: Yes 12/14/20 10:46 Consult Physician Urgent Consulting Provider: [facility] Consult Reason/Comments: high heart rate, afib Do you want consulting provider notified?: Yes Primary care physician: Eda Degroot Hospital Course: Diagnosis on discharge: Covid 19 infection no evidence of pneumonia on chest x-ray Urinary tract infection, patient received IV Rocephin during this admission no need for further antibiotic at the time of discharge Febrile illness Evidence of dehydration with prerenal azotemia History of pulmonary embolism maintained on Coumadin however INR is significantly subtherapeutic Underlying history of hypertension Underlying history of hyperlipidemia Underlying history of Alzheimer's disease with dementia Hospital course: Jyothi Dejesus, is an 85 year old female patient of Dr Degroot who presented to [facility] emergency room with a chief complaint of generalized weakness, somnolence and worsening mental status, patient resides at an extended care facility, she was exposed to a Covid 19 patient at the facility, she was having low grade fever. patient was evaluated in the emergency roomvital examination on presentation revealed a temperature of 99.9 pulse 102 respiration 20 blood pressure 120/109 pulse ox 93% on room air. her white blood count was 11.4 hemoglobin 14.0 platelet count 262 INR 1.1 sodium 143 potassium 4.0 BUN 22 creatinine 0.92 glucose 113C-reactive protein 56.9 pro calcitonin 0.14 castillo virus PCR was positive, urine analysis revealed evidence of urinary tract infection. Chest x-ray was done in the emergency room and did not reveal any evidence of acute pulmonary disease, EKG was done in the emergency room and revealed normal findings. Patient was admitted to medical floor she was started on dexamethasone and Lovenox, pulmonary critical care consultation was requested and infectious disease consultation was requested. past medical history is significant for history of pulmonary embolism maintained on Coumadin however INR is subtherapeutic at 1.1, history of hypertension, history of hyperlipidemia, history of oxygen dependent chronic respiratory failure due to advanced COPD, history of Alzheimer disease with dementia. 12/13/2020 patient was seen and examined on the medical floor she is alert and oriented 3 in no apparent distress she is requiring oxygen 4 L via nasal cannula she is complaining of cough and shortness of breath otherwise she denies any complaints there is no fever or chills no headache or dizziness no chest pain no nausea or vomiting no abdominal pain no diarrhea no blood in the stools no burning with urination no frequency or urgency and no hematuria. On 12/14/2020 patient was seen and examined on the medical floor she is alert responsive in no apparent distress she is receiving Remdesevir, today is dose #2, she is also receiving dexamethasone and Lovenox, there is no fever or chills no headache or dizziness no chest pain no shortness of breath no cough no nausea or vomiting no abdominal pain no diarrhea and no urinary symptoms. On 12/15/2020 showed was seen and examined on the medical floor alert responsive in no distress she has occasional cough otherwise she denies any complaints she is maintained on oxygen 4 L via nasal cannula there is no fever or chills no headache or dizziness no chest pain, no palpitation no nausea or vomiting no abdominal pain no diarrhea no blood in the stools no burning with urination no frequency or urgency and no hematuria On 12/16/2020 patient was seen and examined on the medical floor she is alert, slightly confused in no distress, she is still complaining of cough and shortness of breath otherwise she denies any complaints there is no fever or chills no headache or dizziness no chest pain no nausea or vomiting no abdominal pain no diarrhea no blood in the stools no burning with urination no frequency or urgency and no hematoma she is maintained on oxygen 3 L via nasal cannula with a pulse ox of 94% her white blood count is 8.1 hemoglobin 16.5 platelet count 253 On 12/17/2020 patient was seen and examined on the medical floor she is alert confused in no distress she is feeling better there is no fever or chills no headache or dizziness no chest pain no shortness of breath, she has occasional cough no nausea or vomiting no abdominal pain no diarrhea no blood in the stools no burning with urination no frequency or urgency and no hematuria patient will finish her fifth dose of Remdesevir today she can be discharged to retirement after her last dose of Remdesevir Patient Condition at Discharge: Fair Plan - Discharge Summary Discharge Rx Participant: No New Discharge Prescriptions: New Atorvastatin [Lipitor] 10 mg PO HS tab Metoprolol Tartrate [Lopressor] 12.5 mg PO BID tab Enoxaparin [Lovenox] 40 mg SQ DAILY syringe Melatonin 5 mg PO HS tablet Albuterol Inhaler [Ventolin Hfa Inhaler] 2 puff INHALATION RT-TID puff Thiamine [Vitamin B-1] 100 mg PO DAILY tab Cyanocobalamin [Vitamin B-12] 1,000 mcg PO DAILY tab Ascorbic Acid [Vitamin C] 1,000 mg PO DAILY tab Cholecalciferol [Vitamin D3 (25 Mcg = 1000 Iu)] 100 mcg PO DAILY tablet Continue Memantine [Namenda] 10 mg PO BID@0800,1700 clonazePAM [KlonoPIN] 0.5 mg PO BID@1300,2000 Budesonide-Formot 160-4.5 Mcg [Symbicort 160-4.5 Mcg Inhaler] 2 puff IN HALATION RT-BID #1 puff Acetaminophen Tab [Tylenol] 500 - 1,000 mg PO Q4-6H PRN PRN Reason: Fever And/ Or Pain Nystatin [Nystop] 1 applic TOPICAL BID PRN PRN Reason: RASH UNDER FOLDS Loperamide [Imodium] 2 mg PO Q2H PRN PRN Reason: Diarrhea Hyoscyamine Elixir [Levsin 0.125MG/ML Drops] 1 - 2 ml PO Q4H PRN PRN Reason: Secretions traZODone HCL 150 mg PO HS@2000 predniSONE 5 mg PO DAILY@0800 Furosemide [Lasix] 10 mg PO Q48H Donepezil HCl [Aricept] 10 mg PO DAILY@0800 Ipratropium-Albuterol Nebulize [Duoneb 0.5 mg-3 mg/3 ml Soln] 3 ml IN RT-TID@,, Aspirin 325 mg PO DAILY@0800 guaiFENesin [Diabetic Tussin Ex] 200 mg PO DAILY PRN PRN Reason: Congestion Discontinued QUEtiapine [SEROquel] 100 mg PO DAILY@1700 Morphine Sulfate [Morphine Sulfate Oral Soln Conc (20 MG/ML)] 25 mg PO Q3H PRN PRN Reason: RESTLESSNESS OR PAIN LORazepam ORAL CONC [Ativan Intensol] 1 mg PO Q4H PRN PRN Reason: Agitation Haldol 5mg/Ml Solution 2.5 mg PO Q6H PRN PRN Reason: Nausea And Vomiting clonazePAM [KlonoPIN] 0.5 mg PO HS PRN PRN Reason: Agitation QUEtiapine [SEROquel] 25 mg PO DAILY@0800 Discharge Medication List Memantine [Namenda] 10 mg PO BID@0800,1700 01/31/15 [History] clonazePAM [KlonoPIN] 0.5 mg PO BID@1300,2000 01/31/15 [History] Budesonide-Formot 160-4.5 Mcg [Symbicort 160-4.5 Mcg Inhaler] 2 puff INHALATION RT-BID #1 puff 02/04/15 [Rx] Acetaminophen Tab [Tylenol] 500 - 1,000 mg PO Q4-6H PRN 12/11/20 [History] Aspirin 325 mg PO DAILY@0800 12/11/20 [History] Donepezil HCl [Aricept] 10 mg PO DAILY@0800 12/11/20 [History] Furosemide [Lasix] 10 mg PO Q48H 12/11/20 [History] Hyoscyamine Elixir [Levsin 0.125MG/ML Drops] 1 - 2 ml PO Q4H PRN 12/11/20 [History] Ipratropium-Albuterol Nebulize [Duoneb 0.5 mg-3 mg/3 ml Soln] 3 ml IN RT- TID@09,,12/11/20 [History] Loperamide [Imodium] 2 mg PO Q2H PRN 12/11/20 [History] Nystatin [Nystop] 1 applic TOPICAL BID PRN 12/11/20 [History] guaiFENesin [Diabetic Tussin Ex] 200 mg PO DAILY PRN 12/11/20 [History] predniSONE 5 mg PO DAILY@0800 12/11/20 [History] traZODone HCL 150 mg PO HS@199912/11/20 [History] Albuterol Inhaler [Ventolin Hfa Inhaler] 2 puff INHALATION RT-TID puff 12/17/20 [Rx] Ascorbic Acid [Vitamin C] 1,000 mg PO DAILY tab 12/17/20 [Rx] Atorvastatin [Lipitor] 10 mg PO HS tab 12/17/20 [Rx] Cholecalciferol [Vitamin D3 (25 Mcg = 1000 Iu)] 100 mcg PO DAILY tablet 12/17/20 [Rx] Cyanocobalamin [Vitamin B-12] 1,000 mcg PO DAILY tab 12/17/20 [Rx] Enoxaparin [Lovenox] 40 mg SQ DAILY syringe 12/17/20 [Rx] Melatonin 5 mg PO HS tablet 12/17/20 [Rx] Metoprolol Tartrate [Lopressor] 12.5 mg PO BID tab 12/17/20 [Rx] Thiamine [Vitamin B-1] 100 mg PO DAILY tab 12/17/20 [Rx] Follow up Appointment(s)/Referral(s): Eda Degroot MD [Primary Care Provider] - 1-2 days [facility] [NON-STAFF] - As Needed
--- NOTE | 2020-12-17 15:08 | P.PN ---
Subjective Progress Note Date: 12/17/20 Principal diagnosis: Weakness, lethargy, altered mental status This is a pleasant 85-year-old female patient with a known history of dementia, hyperlipidemia, pulmonary embolism anticoagulated with warfarin, renal disease. She was brought in to the emergency room yesterday from her adult foster halfway [facility] with altered mental status, lethargy, weakness. She had been exposed to others at the facility with CoVID 19. Here she did test positive for the castillo virus. Chest x-ray shows no acute pulmonary process. She is hypoxemic at 86% O2 saturation on room air. She's using today in consultation on the regular medical floor. She is currently resting comfortably in bed. Awake and alert in no acute distress. Oriented to person. White count 9.7. Hemoglobin 13.6. D-dimer 0.89. Sodium 139. Potassium 4.7. Creatinine 0.73. LDH 929. C-reactive protein 36.1. Pro-calcitonin 0.14. INR 1.1 She been initiated on dexamethasone, Lovenox, vitamin supplements. Symbicort, albuterol. Empiric antibiotics in the form of ceftriaxone. 12/14/2020 patient seen in follow-up on medical floor, she sits up in a chair, appears to be comfortable, no respiratory distress, she remains pleasantly confused, last night she had a new onset A. fib with RVR, currently the rate is controlled. Patient remains on Lovenox at prophylactic doses, she is oral dexamethasone, she is on Remdesivir, day 2. She is on multivitamins, she is on Rocephin . ID service is following, but urine cultures show no growth, today's labs have been reviewed, showing no leukocytosis, white blood cell count is 9.7, d-dimer is 0.89, electrolytes are within normal limits, BUN is 28, pro- calcitonin level was negative at 0.14. LDH was 929, and CRP is trending down. Urinalysis suggests possibility of infection, so far culture is negative, On 12/15/2020 patient seen in follow-up on medical floor, she is resting comfortably in bed, still 4 L of oxygen, her pulse ox is 95%, no fever, does have some exertional dyspnea, but no acute distress. No chest discomfort. She remains on Rocephin for urinary tract infection, urine culture has been negative, blood cultures have been negative, patient is on day 3 of Remdesivir, and she remains on oral dexamethasone. Follow-up chest x-ray shows no acute pulmonary process On 12/16/2020 patient seen in follow-up on medical floor. Disease D4 of Remdesivir treatment, patient is resting comfortably in bed, she is on room air, she does have underlying history of dementia, she is breathing comfortably, appears to be in no acute distress, she frequently removes her oxygen, on 3 L her pulse ox is 94-96%, she's had no fever or chills, no acute events overnight. Chest x-ray showed no acute pulmonary process. No acute events overnight, she remains on Rocephin for possibility of UTI, urine culture has been negative, blood cultures negative. Continues to d-dimer is 1.15. Patient continues on oral Decadron, and prophylactic Lovenox. On 12/17/2020 patient seen in follow-up on medical floor, she is calm and comfortable, she is on 3 L of oxygen, her pulse ox is 97%, breathing very comfortably, vital signs have been stable, hemodynamically stable, no chest discomfort, no cough, no fever or chills. Today's last day of Remdesivir. No worsening dyspnea, no acute events overnight. Blood and urine cultures have shown no growth, today's labs have been noted. Objective - Vital Signs Vital signs: Vital Signs Temp 98.3 F 12/17/20 13:58 Pulse 61 12/17/20 13:58 Resp 20 12/17/20 13:58 BP 129/58 12/17/20 13:58 Pulse Ox 93 L 12/17/20 13:58 Intake & Output 12/16/20 12/17/20 12/17/20 18:59 06:59 18:59 Intake Total 300 Output Total 400 Balance 300 -400 Weight 72.575 kg Intake: IV 300 Remdesivir 100 mg In 250 Sodium Chloride 0.9% 250 ml @ 250 mls/hr IVPB Q24H [facility] Rx#:[id number] cefTRIAXone 1 gm In 50 Sodium Chloride 0.9% 50 ml @ 100 mls/hr IVPB Q24HR [facility] Rx#:[id number] Output: Urine 400 Other: Voiding Method External Catheter External Catheter External Catheter # Voids 2 # Bowel Movements 1 - Exam GENERAL EXAM: Alert, chest, 85-year-old white female, 3 L of oxygen, with a pul se ox of 95% comfortable in no apparent distress. HEAD: Normocephalic/atraumatic. EYES: Normal reaction of pupils, equal size. Conjunctiva pink, sclera white. NOSE: Clear with pink turbinates. THROAT: No erythema or exudates. NECK: No masses, no JVD, no thyroid enlargement, no adenopathy. CHEST: No chest wall deformity. Symmetrical expansion. LUNGS: Equal air entry with no crackles, wheeze, rhonchi or dullness. CVS: Regular rate and rhythm, normal S1 and S2, no gallops, no murmurs, no rubs ABDOMEN: Soft, nontender. No hepatosplenomegaly, normal bowel sounds, no guarding or rigidity. EXTREMITIES: No clubbing, no edema, no cyanosis, 2+ pulses and upper and lower extremities. MUSCULOSKELETAL: Muscle strength and tone normal. SPINE: No scoliosis or deformity SKIN: No rashes CENTRAL NERVOUS SYSTEM: Alert and oriented -3. No focal deficits, tone is normal in all 4 extremities. PSYCHIATRIC: Alert and oriented -3. Appropriate affect. Intact judgment and insight. - Labs CBC & Chem 7: 12/17/20 06:16 12/17/20 06:16 Labs: Abnormal Lab Results - Last 24 Hours (Table) 12/17/20 12/17/20 Range/Units 06:16 06:16 RBC 5.77 H (4.10-5.20) X 10*6/uL Hgb 16.0 H (12.0-15.0) g/dL Hct 54.1 H (37.2-46.3) % MCHC 29.6 L (32.0-37.0) g/dL Eosinophils # 0 L (0.04-0.35) X 10*3/uL BUN 47.0 H (9.0-27.0) mg/dL Est GFR (CKD-EPI)NonAf 57.5 L (60.0-200.0) BUN/Creatinine Ratio 52.22 H (12.00-20.00) Ratio Albumin/Globulin Ratio 1.50 L (1.60-3.17) g/dL Microbiology - Last 24 Hours (Table) 03/12/21 18:40 Blood Culture - Preliminary Blood No Growth after 120 hours 12/11/20 18:40 Blood Culture - Preliminary Blood No Growth after 120 hours Assessment and Plan Plan: Assessment: #1. Acute COVID 19 infection without evidence of pneumonia on the chest x-ray #2. Acute hypoxic respiratory failure, related to possibility of sepsis related to urinary tract infection and quit 19 infection #3. New onset A. fib with RVR #4. History of dementia #5. Hyperlipidemia #6. Previous history of pulmonary embolism on warfarin which is currently on hold #7. Chronic kidney disease #8. Previous history of ESBL E. coli urinary tract infection #9. Never smoker #10. Osteoarthritis Plan: Patient has been stable, no worsening dyspnea or hypoxia, obtain home oxygen assessment, his labs have been noted, patient has finished her Remdesivir, she is stable for discharge to [facility] today. I performed a history & physical examination of the patient and discussed their management with my nurse practitioner, Kary Alcantar. I reviewed the nurse practitioner's note and agree with the documented findings and plan of care. Lung sounds are positive for diminished breath sounds. The findings and the impression was discussed with the patient. I attest to the documentation by the nurse practitioner. Time with Patient: Less than 30
--- NOTE | 2020-12-18 12:53 | CDI ---
Documentation Clarification Form Date: 12/18/2020 12:49:00 PM From: [facility] Admit Date: 12/11/2020 08:36:00 PM Patient Name: Jyothi Dejesus Visit Number: [id number] Discharge Date: 12/17/2020 04:37:00 PM ATTENTION: The Clinical Documentation Specialists (CDI) and [facility] Coding Staff appreciate your assistance in clarifying documentation. Please respond to the clarification below the line at the bottom and electronically sign. The CDI & [facility] Coding staff will review the response and follow-up if needed. Please note: Queries are made part of the Legal Health Record. If you have any questions, please contact the author of this message via ITS. Dr. Yaneli Smith The diagnosis sepsis was documented in 12/14-12/17 PNs, but is not noted in subsequent documentation. Acute hypoxic respiratory failure, related to possibility of sepsis related to urinary tract infection and quit 19 infection. History/Risk Factors: COVID, UTI, COPD, A/C Resp Failure, Metabolic Encephalopathy, Failure to Thrive Clinical Indicators: Elevated WBC on admit, HR 102, Resp Failure Vitals: BP 120/109, RR 20, AZ 102, O2 Sat 93, Temp 99.9 Labs: WBC 11.4, 9.76, 8.10- Lactic Acid 1.0 Treatment: Rocephin 1gm IV Oxygen: HIgh Flow Nasal Cannula 4 lpm Please clarify if the sepsis was Present on admission Treated and resolved this admission, not POA Ruled out Other, please specify Clinically unable to determine Present on admission MTDD
--- NOTE | 2020-12-18 13:01 | CDI ---
Documentation Clarification Form Date: 12/18/2020 01:00:00 PM From: [facility] Admit Date: 12/11/2020 08:36:00 PM Patient Name: Jyothi Dejesus Visit Number: [id number] Discharge Date: 12/17/2020 04:37:00 PM ATTENTION: The Clinical Documentation Specialists (CDI) and [facility] Coding Staff appreciate your assistance in clarifying documentation. Please respond to the clarification below the line at the bottom and electronically sign. The CDI & [facility] Coding staff will review the response and follow-up if needed. Please note: Queries are made part of the Legal Health Record. If you have any questions, please contact the author of this message via ITS. Dr. Yaneli Smith CKD is documented in the 12/14-12/17 Progress Notes. History/Risk Factors: HTN, Dehydration, Failure to Thrive, Dementia, Clinical Indicators: CKD Current BUN: 22. 28, 33 CR: .92, .73, .9 GFR: 56, 75, 57 Treatment: Monitor In order to capture the severity of condition, please clarify the stage of the CKD, if known: CKD Stage 1 (GFR > 90) CKD Stage 2 (GFR 60-89) CKD Stage 3a (GFR 45-59) CKD Stage 3b (GFR 30-44) CKD Stage 4 (GFR 15-29) CKD Stage 5 (GFR <15) ESRD Other, please specify Unable to determine Chronic kidney disease stage II MTDD
--- NOTE | 2020-12-18 13:32 | CDI ---
Documentation Clarification Form Date: 12/18/2020 01:30:00 PM From: [facility] Admit Date: 12/11/2020 08:36:00 PM Patient Name: Jyothi Dejesus Visit Number: [id number] Discharge Date: 12/17/2020 04:37:00 PM ATTENTION: The Clinical Documentation Specialists (CDI) and [facility] Coding Staff appreciate your assistance in clarifying documentation. Please respond to the clarification below the line at the bottom and electronically sign. The CDI & [facility] Coding staff will review the response and follow-up if needed. Please note: Queries are made part of the Legal Health Record. If you have any questions, please contact the author of this message via ITS. Dr. Yaneli Andujar pressure ulcer was documented in the Wound Assessment and Nutrition Assessment. Stage II pressure injury on buttock and left perineum. History/Risk Factors: Covid, COPD, A/C Resp Failure, Failure to Thrive, O2 Dependent, HTN Clinical Indicators: Stage II Pressure ulcers Location: Buttock, Left Perineum Wound description: Stage II Treatment: Barrier cream,Increase nutrients related to wound healing Consults: Wound Care, Dietary Elements for accurate and compliant documentation of an ulcer: *The location/laterality of the ulcer *Etiology (decubitus/pressure, diabetic, PVD) *Stage I-IV, Unstageable, Suspected Deep Tissue Injury (To the deepest stage) *If the ulcer was present at admission (POA) or occurred after admission In your professional opinion, can you please clarify the diagnosis, location, laterality and whether present on admission (POA): Stage 2 Pressure/Decubitus Ulcer buttock and left perineum Pressure ulcer ruled out Other condition, please specify Unable to determine Stage II pressure decubitus ulcer buttock and left perineum MTDD
== END 2020-12-17 16:37 | DRG 871 ==
LOC: EC 17:44 → EEVIPCON 17:44 → 4SSUR 20:36
PROVIDERS: ADMIT Internal Medicine; ATTEND Internal Medicine
PROC: 5A0935A Assistance with Respiratory Ventilation, Less than 24 Consecutive Hours, High Flow/Velocity Cannula (ICD-10-PCS; principal; 2020-12-13)
PROC: XW033E5 Introduction of Remdesivir Anti-infective into Peripheral Vein, Percutaneous Approach, New Technology Group 5 (ICD-10-PCS; 2020-12-13)
DX: A41.89 Other specified sepsis (principal); U07.1 COVID-19; G93.41 Metabolic encephalopathy; J96.21 Acute and chronic respiratory failure with hypoxia; N39.0 Urinary tract infection, site not specified; L89.302 Pressure ulcer of unspecified buttock, stage 2; R62.7 Adult failure to thrive; L89.892 Pressure ulcer of other site, stage 2; F02.80 Dementia in other diseases classified elsewhere, unspecified severity, without behavioral disturbance, psychotic disturbance, mood disturbance, and anxiety; Z99.81 Dependence on supplemental oxygen; G30.9 Alzheimer's disease, unspecified; I48.0 Paroxysmal atrial fibrillation; J44.9 Chronic obstructive pulmonary disease, unspecified; E86.0 Dehydration; E78.5 Hyperlipidemia, unspecified; F41.9 Anxiety disorder, unspecified; N18.2 Chronic kidney disease, stage 2 (mild); I12.9 Hypertensive chronic kidney disease with stage 1 through stage 4 chronic kidney disease, or unspecified chronic kidney disease; M19.90 Unspecified osteoarthritis, unspecified site; Z86.19 Personal history of other infectious and parasitic diseases; Z68.25 Body mass index [BMI] 25.0-25.9, adult; Z79.01 Long term (current) use of anticoagulants; Z79.82 Long term (current) use of aspirin; Z79.899 Other long term (current) drug therapy; Z79.51 Long term (current) use of inhaled steroids; Z86.711 Personal history of pulmonary embolism; Z90.49 Acquired absence of other specified parts of digestive tract; Z96.643 Presence of artificial hip joint, bilateral; Z87.440 Personal history of urinary (tract) infections; Z88.0 Allergy status to penicillin; Z80.9 Family history of malignant neoplasm, unspecified
CPT/HCPCS: 36415; 71045; 80053; 81001; 82728; 83605; 83615; 83735; 84145; 85025; 85379; 85610; 86140; 87040; 87086; 87502; 87635; 93005; 94640; 94760; 96360; 96361; 99285